=== PATIENT | female | born 1980 ===

== ENCOUNTER 2017-02-11 09:33 | Emergency (ER) | payer SELFPAY ==
[2017-02-11 11:38] VITALS: BMI 33.4
--- NOTE | 2017-02-11 15:48 | US ---
PROCEDURE: OB Pelvic Ultrasound HISTORY: MD order COMPARISON: None available. FINDINGS: UTERUS: Gestational sac: Single intrauterine gestation. Placenta seen at the anterior wall. The fetus is seen at cephalic presentation at the time of this exam. The amniotic fluid index is 19.9 centimeter. back is to were the anterior wall. CERVIX: The uterine cervix is not clearly visualized in this exam. RIGHT OVARY: Was not visualized. LEFT OVARY: Was not visualized. FREE FLUID: None. OTHER FINDINGS: The biophysical profile is 8 of 8. None. IMPRESSION: Single intrauterine live seen at cephalic presentation. Placenta seen at the anterior wall. Amniotic fluid index is 19.9 centimeter. Biophysical profile is 8 of 8.
--- NOTE | 2017-02-11 16:49 | OBHP ---
Datetime: 02/11/2017 16:28 IP Adm Impression: Term, intrauterine ; No Active Labor; Intact Membranes IP Admit Plan: Observation/Evaluation; Discharge home Admit Comment, IP Provider: 36-year-old 0-0 at 38 weeks gestational age presents to OB ED comp laining of dark brown vaginal discharge, patient concerned about vaginal bleeding. Patient denies any vaginal bleeding, leakage of fluids, contractions. Patient reports good movement. rec ords reviewed. Otherwise, patient without complaints. Past medical history none Past surgical history none Medications vitamins No known drug allergies Obstetrical history first trimester spontaneous loss of 2 Social history no tobacco, no drugs, no alcohol Physical exam: Refer to physical exam findings Biophysical profile: 8 out of 8 Assessment: 36-year-old at 30 weeks gestational age. No evidence of labor at this time. Both maternal well-being and well-being reassuring at this time. BPP 8 out of 8 Plan: Discharge home. Follow-up with care as early scheduled. All patient questions answered. P atient given labor precautions. Pelvic Type - PN: Adequate Extremities - PN: Normal Abdomen - PN: Normal Back - PN: Normal Breast - PN: Normal Lungs - PN: Normal Heart - PN: Normal Thyroid - PN: Normal Neurologic - PN: Normal HEENT - PN: Normal General - PN: Normal FHR - Baseline A Provider: 120s-130s Membranes, Provider: Intact Contraction Comments Provider: occasional irregular pattern Comments, ACOG Physical Exam: Cervix 1 cm, long, high and posterior Small amount of dark brown old blood on exam Pool Provider: Negative IP Hx Assessment: The History has been Reviewed and is Current Vital Signs Provider: Reviewed; Within Normal Limits IP Chief Complaint: Vaginal bleeding NICHD Variability Prov Fetus A: Moderate 6-25bpm NICHD Accel Fetus A IP Provider: 15X15 FHR Category Provider Fetus A: Category I NICHD Decel Fetus A IP Provider: None Dilatation, Provider: 1 Effacement, Provider: long Station, Provider: high Genitourinary Exam: Normal DTRs - PN: Normal
== END 2017-02-11 16:48 | disposition home or self-care (01) ==
LOC: H.EROB2 09:33
DX: O47.1 False labor at or after 37 completed weeks of gestation (principal); Z3A.38 38 weeks gestation of pregnancy

== ENCOUNTER 2017-02-13 14:14 | Emergency (ER) | payer SELFPAY ==
[2017-02-13 15:04] VITALS: BMI 38.7
--- NOTE | 2017-02-13 16:49 | OBHP ---
Datetime: 02/13/2017 15:06 IP Adm Impression: Term, intrauterine IP Admit Plan: Observation/Evaluation; Discharge home (Annotations: Data stored by CPN on behalf of user) Admit Comment, IP Provider: 36 y/o , at 39+3wks presents with suspected ROM and ctx since 11:00. Notes some brown discharge, +FM. Drinking plenty of water, 5-6 bottles today. PNC: [facility] GBS: negative, HIV neg, HBsAg: neg, RPR: NR, Rubella not immune PPD+, CXR neg POBhx: 2 SAB PMH: denies PSurgical: denies Exam: refer to physical exam findings A: IUP 39+3 no evidence of labor at this time. Reassuring FHT. P: BPP: 8/8, ANETA: 14.1 Discharge home Patient to follow up at [facility]. Next appt: Wednesday: 02/16/17 Jennyfer Vargas PGY1 Patient seen and examined with Dr. Snyder Abdomen - PN: Normal Lungs - PN: Normal Heart - PN: Normal HEENT - PN: Normal General - PN: Normal FHR - Baseline A Provider: 140 Membranes, Provider: Intact Comments, ACOG Physical Exam: speculum exam: scant brown discharge, no pooling limited bedside u/s done with Dr. Snyder: cephalic presentation. Aneta MVP 3cm, BPP 8/8 Pool Provider: Negative Nitrazine Provider: Negative IP Hx Assessment: The History has been Reviewed and is Current EGA AdmitDate IP: 39.3 Vital Signs Provider: Reviewed IP Chief Complaint: Suspected ruptured membranes NICHD Variability Prov Fetus A: Moderate 6-25bpm NICHD Accel Fetus A IP Provider: 15X15 FHR Category Provider Fetus A: Category I NICHD Decel Fetus A IP Provider: None Dilatation, Provider: 1 Effacement, Provider: thick Station, Provider: high
--- NOTE | 2017-02-13 17:50 | US ---
EXAM: US After First Trimester, Transabdominal CLINICAL HISTORY: 36 years old, female; Pain; Pain indication: Pelvic pain/back pain; ; Additional info: ? Lof TECHNIQUE: Real-time transabdominal obstetrical ultrasound of the maternal pelvis and a second or third trimester with image documentation. EXAM DATE/TIME: 02/13/2017 3:04 PM COMPARISON: No relevant prior studies available. FINDINGS: Single fetus identified, cephalic position. Sonographic gestational age was not calculated. The given gestational age is reportedly 40 weeks, 4 days. heart motion visualized, at 134 beats/min. anatomy was not evaluated. Placenta was not specifically evaluated. ANETA is 14.2 cm, which is between the 5th and 95th percentile for the given gestational age. Cervical length is 5 cm (normal greater than 3 cm), measured transabdominally. Biophysical profile score of 8/8, with 2 points given for tone, 2 points given for movement, 2 points given for breathing, and 2 points given for amniotic fluid. IMPRESSION: Intrauterine with heart motion. No acute abnormality identified on this limited exam. Biophysical profile score of 8/8. Normal ANETA. See above for remaining findings.
== END 2017-02-13 16:45 | disposition home or self-care (01) ==
LOC: H.EROB2 14:14
DX: O47.1 False labor at or after 37 completed weeks of gestation (principal); Z3A.39 39 weeks gestation of pregnancy

== ENCOUNTER 2017-02-14 21:19 | Inpatient (IN) | payer MEDICAID, SELFPAY ==
[2017-02-13 15:04] VITALS: BMI 38.7
[2017-02-14] MEDS: Lactated Ringer's 1,000 ML IV SCH ×2 (22:15→23:30)
[2017-02-14 23:01] LABS: BASO % 0.2 % (0.0-2.0); EOS % 0.3 % (0.0-4.0); HEMATOCRIT 37.5 % (34.0-47.0); LYMPH # 1.6 K/uL (1.0-4.3); LYMPH % 11.4 % (20.0-40.0); MEAN CELL VOLUME 93.9 fl (81.0-99.0); MEAN CORPUSCULAR HEMOGLOBIN 31.4 pg (27.0-31.0); MEAN CORPUSCULAR HGB CONC 33.4 g/dL (33.0-37.0); MEAN PLATELET VOLUME 10.2 fl (7.2-11.7); NEUT # 11.7 K/uL (1.8-7.0); NEUT % 81.1 % (50.0-75.0); RED CELL DISTRIBUTION WIDTH 14.8 % (11.5-14.5); WHITE BLOOD COUNT 14.4 K/uL (4.8-10.8)
--- NOTE | 2017-02-14 23:01 | OBHP ---
Datetime: 02/14/2017 22:20 IP Adm Impression: Term, intrauterine IP Admit Plan: Observation/Evaluation Admit Comment, IP Provider: 36 yo at 39+4 wks w/ EDC 02/17/2017 by LMP, c/o ctxns and lower abdominal pain, started this am, not sure if her water broke around 9:20 am, denies VB, reports FM. 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 FHT reassuring. GBS negative. Extremities - PN: Normal Neurologic - PN: Normal FHR - Baseline A Provider: 150 Membranes, Provider: Intact Contraction Comments Provider: Q6-7 Comments, ACOG Physical Exam: Spec: scant fluid, negative nitrazine, negative fern VE: 1/ 100/ w/ a palpable bag Pool Provider: Negative Nitrazine Provider: Negative Ferning Provider: Negative EGA AdmitDate IP: 39.4 Vital Signs Provider: Reviewed IP Chief Complaint: Uterine contractions NICHD Variability Prov Fetus A: Moderate 6-25bpm NICHD Decel Fetus A IP Provider: None Dilatation, Provider: 1 Effacement, Provider: 100 Station, Provider: -3 Genitourinary Exam: Normal
[2017-02-15] MEDS: Lactated Ringer's 1,000 ML IV SCH ×13 (00:17→16:00)
--- NOTE | 2017-02-15 05:17 | OBPN ---
Datetime: 02/15/2017 05:13 IP Progress Plan Other: BPP IP Procedures: Sterile Speculum Exam Membranes, Provider: Intact FHR - Baseline A Provider: 140 IP Progress Note Comment: 36 yo at 39+5 wks w/ ctxns, VE unchanged NST nonreactive BPP today NICHD Variability Prov Fetus A: Moderate 6-25bpm Dilatation, Provider: 1 Effacement, Provider: 100 Station, Provider: -3 Datetime: 02/14/2017 22:20 Pool Provider: Negative Nitrazine Provider: Negative Ferning Provider: Negative Contraction Comments Provider: Q6-7 Vital Signs Provider: Reviewed NICHD Decel Fetus A IP Provider: None Datetime: 02/13/2017 15:06 NICHD Accel Fetus A IP Provider: 15X15 FHR Category Provider Fetus A: Category I
[2017-02-15 10:13] VITALS: RESP 18
--- NOTE | 2017-02-15 10:15 | US ---
Ultrasound biophysical profile Indication: fht non reactive Technique: Grayscale, color flow, and M-mode sonographic images of the single live intrauterine were obtained. Comparison: the AO physical profile performed 02/13/17 Findings: There is a single live intrauterine gestation. The fetus is in cephalic position. The placenta is not adequately assessed on the submitted views. There is a normal amount of amniotic fluid. The ANETA measures 16.2 cm. M-mode imaging demonstrates a heart rate to be 142.2 beats per min. movements 2/2 breathing 2/2 tone 2/2 Amniotic fluid 2/2 Total score impression: 06/01 Impression: Biophysical profile of 8 out of 8. Single live intrauterine in cephalic position with a heart rate of 142.2 beats per min.
[2017-02-15] MEDS ORDERED: Oxytocin 30 units/LR 500ML 500 ML IV ONE (11:31)
[2017-02-15] MEDS ORDERED: Lactated Ringer's 2,000 ML IV SCH (14:00)
--- NOTE | 2017-02-15 14:17 | OBADHP ---
Datetime: 02/15/2017 11:34 Pelvic Type - PN: Adequate Abdomen - PN: Normal Lungs - PN: Normal Heart - PN: Normal HEENT - PN: Normal General - PN: Normal Vital Signs Provider: Reviewed EGA AdmitDate IP: 39.5 Datetime: 02/15/2017 09:25 Admit Comment, IP Provider: at 39+5 wks GA presents with complaints of pain with contractions a nd minimal LOF with contractions. Patient notes decreased FM since yesterday. GBS: negative, HIV neg, HBsAg: neg, RPR: NR, Rubella not immune PPD+, CXR neg POBhx: 2 SAB PMH: denies PSurgical: denies A: IUP at 39+5 wks GA in latent phase of labor P: Admit to unit -labs: rpr, cbc, type and screen, urine drug screen, ua -BPP Reassess Irais PGY1 OBH ADDENDUM: pt seen _ examined by me. agree with a above assessment with following additions: Extremities - PN: Normal Back - PN: Normal Neurologic - PN: Normal Membranes, Provider: Intact Contraction Comments Provider: irreg IP Hx Assessment: The History has been Reviewed and is Current IP Chief Complaint: Uterine contractions; Decreased movement Dilatation, Provider: 2 Effacement, Provider: 90 Station, Provider: -2 Genitourinary Exam: Normal IP Adm Impression: Term, intrauterine IP Admit Plan: Admit to unit; Initiate labor induction protocol Datetime: 02/15/2017 07:46 FHR - Baseline A Provider: 140s Vital Signs Provider Details: bradycardia NICHD Variability Prov Fetus A: Minimal - Undetectable to <5bpm NICHD Decel Fetus A IP Provider: None Datetime: 02/14/2017 22:20 Comments, ACOG Physical Exam: Spec: scant fluid, negative nitrazine, negative fern VE: 1/ 100/ w/ a palpable bag Pool Provider: Negative Nitrazine Provider: Negative Ferning Provider: Negative Datetime: 02/13/2017 15:06 NICHD Accel Fetus A IP Provider: 15X15 FHR Category Provider Fetus A: Category I Datetime: 02/11/2017 16:28 Breast - PN: Normal Thyroid - PN: Normal DTRs - PN: Normal
[2017-02-15] MEDS ORDERED: Fentanyl/Bupivacaine HCl 250 ML EPI ONE (15:01)
[2017-02-15 15:27] LABS: RBC URINE 1 /hpf (0-3); URINE BILIRUBIN NEGATIVE (NEGATIVE); URINE BLOOD NEGATIVE (NEGATIVE); URINE COLOR YELLOW (YELLOW); URINE GLUCOSE (UA) NEG (Normal); URINE KETONE NEGATIVE (NEGATIVE); URINE LEUKOCYTE ESTERASE NEG Leu/uL (Negative); URINE PROTEIN NEGATIVE (NEGATIVE); URINE UROBILINOGEN 0.2-1.0 mg/dL (0.2-1.0); WBC URINE < 1 /hpf (0-5)
[2017-02-15 17:20] LABS: ALB/GLOB RATIO 0.8 (1.0-2.1); ALKALINE PHOSPHATASE 196 U/L (38-126); ALT/SGPT 33 U/L (9-52); AST/SGOT 26 U/L (14-36); BILIRUBIN,TOTAL 0.3 mg/dl (0.2-1.3); BLOOD UREA NITROGEN 10 mg/dl (7-17); CALCIUM 8.4 mg/dL (8.4-10.2); CARBON DIOXIDE 20 mmol/L (22-30); CHLORIDE 111 mmol/L (98-107); GFR AFRICAN-AMERICAN > 60; GLUCOSE,RANDOM 105 mg/dL (65-105); POTASSIUM 3.6 MMOL/L (3.6-5.0); SODIUM 143 mmol/l (132-148); TOTAL PROTEIN 5.9 G/DL (6.3-8.2)
[2017-02-15] MEDS ORDERED: Lactated Ringer's 2,000 ML IV ONE (18:30)
[2017-02-15] MEDS ORDERED: ceFAZolin 2 GM in Sodium Chloride 0.9% 100 ML IVPB ONE (18:42)
--- NOTE | 2017-02-15 18:57 | OBPN ---
Datetime: 02/15/2017 18:54 IP Informed Consent Obtain: Section Delivery Presentation-Admit: Vertex IP Progress Note Comment: s: no c/o o: /-2 arom moder mecon fhr: intermittent variable decel, variab min- moder ctx 1 1-5min; Pit @ 4mu I: Intolerance to Labor Latent Phase Labor P: informed consent obtained for . risk, benefits, indic d/w. she agrees with plan. NICHD Decel Fetus A IP Provider: Variable Datetime: 02/15/2017 11:34 IP Progress Impression: Reassuring heart rate IP Procedures: Biophysical Profile IP Progress Plan: Augmentation Datetime: 02/15/2017 09:25 Membranes, Provider: Intact Contraction Comments Provider: irreg FHR - Baseline A Provider: 150 Vital Signs Provider: Reviewed NICHD Variability Prov Fetus A: min-moder Dilatation, Provider: 2 Effacement, Provider: 90 Station, Provider: -2 Datetime: 02/15/2017 07:46 Vital Signs Provider Details: bradycardia
[2017-02-15] MEDS ORDERED: Lidocaine 2% PF (10 ml) Amp ONE ×3 (19:42→21:11)
[2017-02-15] MEDS ORDERED: DiphenhydrAMINE 50 mg/ml Inj IVP PRN (20:10)
[2017-02-15] MEDS ORDERED: Midazolam 2 MG/2 ML VIAL ONE (20:44)
[2017-02-15] MEDS ORDERED: Dexamethasone 4 mg/1 ml ONE (20:45)
[2017-02-15] MEDS ORDERED: Propofol 10 mg/ml Inj (20 ML) ONE (21:12)
[2017-02-15 21:54] VITALS: BP 134/65; PULSE 51; TEMP 98.7; O2SAT 99
[2017-02-15] MEDS ORDERED: Oxycodone/Acetaminophen 5/325 mg Tab PO PRN (22:42)
[2017-02-15] MEDS ORDERED: Oxytocin 30 units/LR 500ML 500 ML IV SCH (22:45)
[2017-02-16] MEDS ORDERED: Lactated Ringer's 1,000 ML IV SCH (00:45)
[2017-02-16] MEDS ORDERED: ceFAZolin 2 GM in Sodium Chloride 0.9% 100 ML IVPB ONE ×2 (00:54→08:00)
[2017-02-16 07:02] LABS: BASO % 0.1 % (0.0-2.0); HEMATOCRIT 28.7 % (34.0-47.0); LYMPH # 1.4 K/uL (1.0-4.3); LYMPH % 7.5 % (20.0-40.0); MEAN CELL VOLUME 93.9 fl (81.0-99.0); MEAN CORPUSCULAR HEMOGLOBIN 31.8 pg (27.0-31.0); MEAN CORPUSCULAR HGB CONC 33.8 g/dL (33.0-37.0); MEAN PLATELET VOLUME 9.7 fl (7.2-11.7); MONO # 0.9 K/uL (0.0-0.8); MONO % 5.1 % (0.0-10.0); NEUT # 16.2 K/uL (1.8-7.0); NEUT % 87.3 % (50.0-75.0); NRBC % 0.1 % (0.0-0.0); PLATELET COUNT 173 K/uL (130-400); RED CELL DISTRIBUTION WIDTH 14.9 % (11.5-14.5); WHITE BLOOD COUNT 18.6 K/uL (4.8-10.8)
[2017-02-16 07:44] LABS: ALB/GLOB RATIO 0.8 (1.0-2.1); ALKALINE PHOSPHATASE 134 U/L (38-126); ALT/SGPT 30 U/L (9-52); AST/SGOT 30 U/L (14-36); BILIRUBIN,TOTAL 0.2 mg/dl (0.2-1.3); BLOOD UREA NITROGEN 11 mg/dl (7-17); CARBON DIOXIDE 20 mmol/L (22-30); CHLORIDE 113 mmol/L (98-107); GFR AFRICAN-AMERICAN > 60; GLUCOSE,RANDOM 97 mg/dL (65-105); POTASSIUM 3.6 MMOL/L (3.6-5.0); SODIUM 143 mmol/l (132-148); TOTAL PROTEIN 4.8 G/DL (6.3-8.2)
--- NOTE | 2017-02-16 08:10 | OP ---
PROCEDURE DATE: 02/15/2017 PREOPERATIVE DIAGNOSES: 1. 39.5 weeks. 2. intolerance to contractions. 3. Failed augmentation of labor POSTOPERATIVE DIAGNOSES: 1. 39.5 weeks. 2. intolerance to contractions. 3. Failed augmentation of labor PROCEDURE: Primary low transverse section. SURGEON: Brandon Dolan MD FISHER TERRAPIN: Dr. Candida Vargas, PGY-1; and Dr. Desiree Hardy, PGY-1. ANESTHESIA: Epidural. ANESTHESIOLOGIST: Dr. Thomas. ESTIMATED BLOOD LOSS: 900 mL. COMPLICATIONS: None. FINDINGS: thick meconium; viable female infant in direct OP presentation with a weight of 7 pounds 10 ounces, equal to 3450 grams, and Apgars of 9 and 9. The patient to recovery room. to nursery. PATHOLOGY: None. CATHETER: Ibarra placed to drainage. INDICATIONS: The patient is a 36-year-old female, 3, para 0, who presented to L and D with complaints of decreased movement since the day prior to presentation and complaints of contractions and concern for questionable rupture. Within past week she had presented to kho[facility] 2 other times with complaint of light vaginal bleeding. She was observed overnight. Her monitor strip was noted to have minimal to moderate variability and was nonreactive. Biophysical was ordered and her biophysical was 8/8. The patient continued to have a monitor strip with minimal to moderate variability and nonreactivity. She appeared to be in the early phase of latent labor and was admitted for augmentation. The indications of augmentation were discussed with patient and she desired and agreed with plan of care. Following augmentation with Pitocin, the patient developed recurrent intermittent variable decelerations with continued minimal variability to moderate variability. intolerance to contractions was discussed with the patient and informed consent was obtained for a section. Risks, benefits also discussed with the patient. OPERATIVE PROCEDURE: The patient was taken to the operating room where she was placed in the dorsal supine position with a leftward tilt. The bladder catheter was placed. She was then prepped and draped in the routine sterile fashion. A Pfannenstiel skin incision was made with the knife and the incision was carried down to the underlying rectus fascia and extended bilaterally. The inferior rectus fascial edge was grasped with Leana's and elevated, and the underlying rectus muscle dissected off. The same procedure was performed along the superior rectus fascial edge. The peritoneum was identified, tented upward and incised superiorly and inferiorly. The bladder blade was placed and the bladder flap created using sharp dissection. A lower uterine transverse incision was made with the scalpel and the uterine cavity was entered with a hemostat. Thick meconium was observed. The uterine incision was extended laterally and in an anterior-posterior matter. The was noted to be in direct OP presentation. The was delivered in routine fashion. The mouth and nares suctioned. The cord clamped and cut. The baby was handed off to the awaiting uniform patrol police officer. Cord segment was obtained for cord pH. Cord blood was collected. The placenta was delivered spontaneously intact. The uterus was exteriorized and cleared of all clots and debris. A left lateral extension was noted extending inferiorly and this was repaired with 0 Monocryl in a running locked fashion. The uterine incision was repaired with 0 Monocryl in a running locked fashion. There was also a right inferior lateral extension noted and this was repaired with 0 Monocryl in a running locked fashion. An imbricated stitch with 0 Monocryl was then placed. The abdomen was irrigated and cleared of all clots and debris. The uterus was returned to the abdomen and the pelvis was irrigated and cleared of all clots and debris. Dr. Booker was called to assist in closure however when she arrived the uterine incisions had been closed. She briefly scrubbed in. Excellent hemostasis was confirmed. All sponge, lap and needle counts were correct. The peritoneum was reapproximated with 2-0 Vicryl in a running fashion. The muscle was reapproximated with 2-0 Vicryl in simple interrupted fashion. The fascia was reapproximated with 0 Vicryl in a running fashion beginning at left lateral corner and going directly across to the right. The wound was irrigated and excellent hemostasis confirmed. The subcutaneous tissue was closed with 2-0 plain in simple interrupted fashion and the skin was closed with a subcuticular stitch of 4-[address] Vargas and Antony assisted in the surgical closure of the subcutaneous and subcuticular layers. All sponge, lap and needle counts were correct x 2. The patient returned to recovery room in satisfactory condition. Brandon Dolan MD cc: [id number] TT: 02/16/2017 08:09:37 mn EDUARDO
[2017-02-16 13:13] LABS: LARGE PLATELETS PRESENT; NEUTROPHIL 92 % (42-75); TOTAL CELLS COUNTED 100
--- NOTE | 2017-02-17 06:28 | OBPPN ---
Datetime: 02/17/2017 06:23 PP Pain Prov: Within normal limits PP Nausea Prov: Denies PP Flatus Prov: Yes PP BM Prov: No PP Heart Prov: Normal PP Lungs Prov: Normal PP Abdomen/Uterus Prov: Normal PP Lochia Prov: Normal PP CVA Tenderness Prov: Normal PP Extremities Prov: Normal PP C/S Incision Prov: Normal PP Progress Prov: Normal PP Comments Phys Exam Prov: incision clean/dry/intact PP Impression Prov: Normal progression PP Plan Prov: Continue present management PP Progress Note Prov: POD # 2 Patient sitting comfortably in bed, feeling well this AM. Denies pain, dizziness/weakness/nausea o r vomiting. Has flatus, no bowel movement yet. Patient has normal urine output. Tolerating PO diet, h as no difficulty ambulating. Patient is breast and bottle feeding. No concerns or complaints at this time. PE: VSS Lungs: CTABL Cardiac: S1 S2 rrr, no murmurs/rubs/gallops Abd: bowel sound present, soft, tenderness to palpation, fundus firm below level of umbilicus, incision: clean/dry/intact Ext: trace pedal edema bilaterally A: 36 yr s/p primary P: -Continue present management -encouraged ambulation -pain management -encouraged breast feeding Desiree Schmidt M.D. -PGY1 OB Hospitalist note: late entry h/h 07/22 This pt was seen 22:00 and examined by me. Agree with above note. ANGELA NORTH PP Procedures: None Vital Signs Provider PP: Reviewed; Within Normal Limits
--- NOTE | 2017-02-17 11:09 | OBPPN ---
Datetime: 02/17/2017 06:23 PP Progress Note Prov: POD # 2 Patient sitting comfortably in bed, feeling well this AM. Denies pain, dizziness/weakness/nausea o r vomiting. Has flatus, no bowel movement yet. Patient has normal urine output. Tolerating PO diet, h as no difficulty ambulating. Patient is breast and bottle feeding. No concerns or complaints at this time. PE: VSS Lungs: CTABL Cardiac: S1 S2 rrr, no murmurs/rubs/gallops Abd: bowel sound present, soft, tenderness to palpation, fundus firm below level of umbilicus, incision: clean/dry/intact Ext: trace pedal edema bilaterally A: 36 yr s/p primary P: -Continue present management -encouraged ambulation -pain management -encouraged breast feeding Desiree Schmidt M.D. -PGY1 OB Hospitalist note: late entry h/h 07/22 The patient was seen with the resident and agree with the note. Postoperative day #2 Encourage ambulation Motrin and Percocet as needed Anticipate discharge in a.m.
[2017-02-18] MEDS ORDERED: Measles, Mumps, and Rubella 1 EA VIAL SC ONE (10:00)
--- NOTE | 2017-02-23 12:49 | OBDS ---
DELIVERY PERSONNEL Delivery Doctor: Tin Iqbal MD [employer] Curer: lala Fitzgerald RN/ Glenis Gomez RN/ Chava RN Anesthesiologist: Lexy Campos MD (Annotations: Data stored by [facility] on behalf of user) Resident: Dr. Tammie Vargas / Dr. Stephanie Schmidt MATERNAL INFORMATION Delivery Anesthesia: Epidural Medications in Delivery: Pitocin (Annotations: Data stored by [facility] on behalf of user) Estimated Blood Loss (ml): 900 Placenta Cultured: No Maternal Complications: None Provider Comments: op note preop dx: 39.5wks; intolerance to contracts postop dx: same; direct op procedure: primary lft cs surgeon: ita assts: jose pgy1, tiffany pgy1 anesth: epidural dr palafox ebl 900cc no complic ebl 900cc findings: viable female,direct op; 7lb10o; 9_9 pt to rr neon to nbn. path: none. LABOR SUMMARY EDC: 02/17/2017 00:00 No. Babies in Womb: 1 Attempted: No Labor Anesthesia: Epidural LABOR INFORMATION Reason for Induction: Not Applicable Onset of Labor: 02/15/2017 15:00 Oxytocin: Augmentation Group B Beta Strep: Negative Steroids Given: None Reason Steroids Not Administered: Not Applicable Other Reason Not Administered: n/a MEMBRANES Membranes Rupture Method: Artificial Rupture of Membranes: 02/15/2017 18:10 Length of Rupture (hrs): 2.25 Amniotic Fluid Color: moderate meconium Amniotic Fluid Amount: Moderate Amniotic Fluid Odor: Normal STAGES OF LABOR Stage 3 hrs: 0 Stage 3 min: 1 Total Time in Labor hrs: 5 Total Time in Labor min: 26 CSECTION DELIVERY Primary Indication: Other Other Primary Indication: intolerance to labor Secondary Indication: N/A CSection Urgency: Non Elective CSection Incidence: Primary Labor: Labor Elective: Nonelective CSection Incision: Lower Uterine Transverse CSection Incision Other: n/a Other Sterilization Procedure: n/a BABY A INFORMATION Delivery Date/Time: 02/15/2017 20:25 Method of Delivery: Born in Route : No : N/A Forceps: N/A Vacuum Extraction: N/A Shoulder Dystocia : No SHOULDER DYSTOCIA BABY A Infant Delivery Date/Time: 02/15/2017 20:25 PRESENTATION/POSITION BABY A Presentation: Cephalic Cephalic Presentation: N/A Vertex Position: direct op Breech Presentation: N/A PLACENTA INFORMATION BABY A Placenta Delivery Time : 02/15/2017 20:26 Placenta Method of Delivery: Spontaneous Placenta Status: Delivered SCORES BABY A Heart Rate 1 min: >100 bpm Resp Effort 1 min: Good Cry Reflex Irritability 1 min: Cough or Sneeze or Pulls Away Muscle Tone 1 min: Active Motion Color 1 min: Body [place], Extremities Blue Resuscitation Effort 1 min: Tactile Stimulation SCORE 1 MIN: 9 Heart Rate 5 min: >100 bpm Resp Effort 5 min: Good Cry Reflex Irritability 5 min: Cough or Sneeze or Pulls Away Muscle Tone 5 min: Active Motion Color 5 min: Body [place], Extremities Blue Resuscitation Effort 5 min: N/A SCORE 5 MIN: 9 INFORMATION BABY A Gestational Age at Delivery: 39.5 Gestational Status: Term Infant Outcome : Liveborn Condition : Stable Infant Sex: Female IDENTIFICATION/MEDS BABY A ID Band Number: [id number] ID Band Location: Left Leg; Left Arm Vitamin K Given : Not Given Erythromycin Given: Not Given WEIGHT/LENGTH BABY A Birthweight (gms): 3450 Infant Weight (lb): 7 Weight (oz): 10 CORD INFORMATION BABY A No. Cord Vessels: 3 Nuchal Cord : N/A Nuchal Cord Other: n/a True Knot: n/a Cord pH Baby Arterial: 7.31 Cord Blood Taken: Yes Banking/Donate Info: n/a Infant Suction: Mouth; Nose ASSESSMENT BABY A Complications: None Physical Findings at Delivery: Within Normal Limits Respirations: Appears Normal Engraver Picture/ALS Called : No Infant Care By: Dr. Oreilly /Ceasar Pro Transferred To: [facility]
== END 2017-02-18 17:45 | disposition home or self-care (01) | DRG 371 ==
LOC: H.EROB2 21:19 → H.L&D 02-15 03:30 → OBSVTOIN 02-15 08:59 → H.OB/GYN 02-16 01:10
PROVIDERS: ADMIT Obstetrics & Gynecology; ATTEND Obstetrics & Gynecology
PROC: 10D00Z1 Extraction of Products of Conception, Low, Open Approach (ICD-10-PCS; principal; 2017-02-15)
PROC: 4A1HXCZ Monitoring of Products of Conception, Cardiac Rate, External Approach (ICD-10-PCS; 2017-02-15)
DX: O36.8130 Decreased fetal movements, third trimester, not applicable or unspecified (principal); O76 Abnormality in fetal heart rate and rhythm complicating labor and delivery; Z37.0 Single live birth; Z3A.39 39 weeks gestation of pregnancy

== ENCOUNTER 2019-03-03 17:32 | Inpatient (IN) | payer MEDICAID, OTHER ==
[2019-03-03 17:32] VITALS: BMI 38.7
--- NOTE | 2019-03-03 17:50 | ED PDOC ---
HPI: Abdomen Time Seen by Provider: 03/03/19 18:07 Chief Complaint (Nursing): Abdominal Pain Chief Complaint (Provider): RUQ abdominal pain History Per: Patient History/Exam Limitations: no limitations Onset/Duration Of Symptoms: Days (1 day) Outside of [place] travel?: No Current Symptoms Are (Timing): Still Present Severity: Severe Pain Scale Rating Of: 10 Location Of Pain/Discomfort: RUQ Quality Of Discomfort: Pressure Associated Symptoms: Fever (subjective), Chills, Nausea, Vomiting (3 episodes. NBNB). denies: Diarrhea Exacerbating Factors: Movement Alleviating Factors: None Last Bowel Movement: Yesterday Additional Complaint(s): 38 yo female with no pertinent medical history presents to the ED because of RUQ pain. RUQ pain began yesterday. Pain is constant, 10/10, radiates to her back, and is associated with 3 episodes of NBNB vomiting, subjective fevers, chills and dypsnea secondary to the intense pain. Describes the pain as pressure like. No alleviating or aggravating factors. Last meal was 2p.m. earlier today (soup and grapes). Denies chest pain, sick contacts, dysuria, frequency or urgency. LMP: 02/19/19 PMD: none Social: Denies alcohol use, illicit drug use or smoking history Family history: non-contributory Surgical history: 1 C/S Medical history: Denies Abnormal Vaginal Bleeding: No Last Menstral Period: 02/19/19 Past Medical History Reviewed: Historical Data, Nursing Documentation, Vital Signs Vital Signs: Last Vital Signs Temp 98.0 F 03/03/19 17:44 Pulse 52 L 03/03/19 17:44 Resp 20 03/03/19 17:44 BP 103/63 03/03/19 17:44 Pulse Ox 100 03/03/19 17:44 Primary Care Provider: Doctor,Conversion - Medical History PMH: No Chronic Diseases - Surgical History Surgical History: (x1) - Family History Family History: States: No Known Family Hx Denies: Stroke, [place], CAD, Hypertension - Social History Current smoker - smoking cessation education provided: No Ex-Smoker (has not smoked in the last 12 months): No Alcohol: None Drugs: Denies - Home Medications Home Medications: Ambulatory Orders Medication Instructions Recorded Ferrous Sulfate [Feosol] 325 mg PO BID #60 tab 02/18/17 Ibuprofen [Motrin Tab] 600 mg PO Q6 PRN #30 tab 02/18/17 Comb No.42/Folic Acid 1 tab PO DAILY #0 02/18/17 [Prena1 Chew Tablet] Sennosides A and B [Senokot Tab] 17.2 mg PO HS #30 tab 02/18/17 oxyCODONE/Acetaminophen [Percocet 1 tab PO Q4 PRN #20 tab 02/18/17 5/325 mg Tab] - Allergies Allergies/Adverse Reactions: Allergies Allergy/AdvReac Type Severity Reaction Status Date / Time No Known Allergies Allergy Verified 03/03/19 17:44 Review of Systems Constitutional: Positive for: Fever (subjective), Chills, Sweats Cardiovascular: Negative for: Chest Pain, Palpitations Respiratory: Positive for: Shortness of Breath (secondary to the pain). Negative for: Cough Gastrointestinal: Positive for: Nausea, Vomiting (3 episodes NBNB), Abdominal Pain (RUQ). Negative for: Diarrhea Genitourinary Female: Negative for: Dysuria, Frequency, Hematuria, Vaginal Bleeding Neurological: Negative for: Weakness Physical Exam - Physical Exam Appears: Positive for: Uncomfortable, In Acute Distress Skin: Positive for: Warm, Diaphoresis, Pallor. Negative for: Jaundice Eye Exam: Positive for: Normal appearance, PERRL. Negative for: Scleral icterus Cardiovascular/Chest: Positive for: Regular Rate, Rhythm (S1 and S2 appreciated on exam), Bradycardia. Negative for: Murmur Respiratory: Positive for: Normal Breath Sounds. Negative for: Decreased Breath Sounds, Accessory Muscle Use, Crackles, Rales, Rhonchi, Stridor, Wheezing, Respiratory Distress Gastrointestinal/Abdominal: Positive for: Bowel Sounds (hypoactive bowel soun ds), Soft, Tenderness (RUQ tenderness), Rebound (Simpson's sign positive ). Negative for: Distended, Guarding Back: Positive for: Normal Inspection. Negative for: L CVA Tenderness, R CVA Tenderness, Vertebral Tenderness Neurological/Psych: Positive for: Awake, Alert - Laboratory Results Result Diagrams: 03/08/19 05:25 03/08/19 05:25 - ECG O2 Sat by Pulse Oximetry: 100 - Progress ED Course And Treament: 38 yo female with no pertinent medical history presents to the ED because of RUQ pain Differential: Acute Cholecystitis vs. gastroenteritis vs. pancreatitis Plan: -- CBC -- CMP -- Lipase -- RUQ u/s -- 1L Bolus of NS -- Morphine 2mg x1 for pain -- Zofran x1 for nausea -- Lipase -- Urine dip -- Urine preg Disposition - Clinical Impression Clinical Impression: Cholecystitis - Patient ED Disposition Is Patient to be Admitted: Yes Doctor Will See Patient In The: Hospital - Disposition Disposition Time: 20:48 Condition: FAIR
[2019-03-03] MEDS ORDERED: Sodium Chloride 0.9% 1,000 ML IV SCH (18:15)
--- NOTE | 2019-03-03 18:58 | US ---
Date of service: 03/03/2019 HISTORY: RUQ pain COMPARISON: None. TECHNIQUE: Sonographic evaluation of the right upper quadrant of the abdomen. FINDINGS: LIVER: Measures 15.2 cm in length. Patent portal and hepatic venous systems. Portal venous flow: Hepatopetal. echogenicity of the liver parenchyma. No mass. No intrahepatic bile duct dilatation. GALLBLADDER: Distended gallbladder. Cholelithiasis. Negative study for gallbladder wall thickening, pericholecystic fluid, sonographic Simpson's sign. COMMON BILE DUCT: Measures 11.4 mm. Dilated common bile duct to the point of a small stone in the distal duct measures approximately 9 x 10 mm. PANCREAS: Unremarkable as visualized. No mass. No ductal dilatation. RIGHT KIDNEY: Measures cm in length. Normal echogenicity. No calculus, mass, or hydronephrosis. AORTA: No aneurysmal dilatation. IVC: Unremarkable. OTHER FINDINGS: None . IMPRESSION: Cholelithiasis. No sonographic evidence of acute cholecystitis. 1 cm distal common duct stone with proximal common bile duct dilatation.
[2019-03-03 19:07] LABS: BASO % 0.3 % (0.0-2.0); EOS % 0.1 % (0.0-4.0); HEMOGLOBIN 12.3 g/dL (12.0-16.0); LYMPH # 0.9 K/uL (1.0-4.3); LYMPH % 7.1 % (20.0-40.0); MEAN CELL VOLUME 92.3 fl (81.0-99.0); MEAN CORPUSCULAR HEMOGLOBIN 30.4 pg (27.0-31.0); MEAN CORPUSCULAR HGB CONC 32.9 g/dL (33.0-37.0); MEAN PLATELET VOLUME 9.2 fl (7.2-11.7); MONO # 0.4 K/uL (0.0-0.8); MONO % 3.1 % (0.0-10.0); NEUT # 10.9 K/uL (1.8-7.0); NEUT % 89.4 % (50.0-75.0); PLATELET COUNT 239 K/uL (130-400); RBC 4.05 Mil/uL (3.80-5.20); RED CELL DISTRIBUTION WIDTH 13.6 % (11.5-14.5); WHITE BLOOD COUNT 12.2 K/uL (4.8-10.8)
[2019-03-03 19:25] LABS: ALB/GLOB RATIO 1.3 (1.0-2.1); ALBUMIN 4.4 g/dL (3.5-5.0); ALT/SGPT 141 U/L (9-52); AMYLASE 118 U/L (30-110); AST/SGOT 134 U/L (14-36); BLOOD UREA NITROGEN 12 mg/dl (7-17); CALCIUM 8.6 mg/dL (8.4-10.2); GFR NON-AFRICAN AMERICAN > 60; LIPASE 291 U/L (23-300)
--- NOTE | 2019-03-03 20:48 | CP.PCM.HP ---
<Shane Arevalo - Last Filed: 03/03/19 22:14> History of Present Illness - History of Present Illness History of Present Illness: 38 yo F no sig pmhx presents with RUQ pain. Pt states pain has been present for 8 days. Intermittent, slowly progressing to 10/10, sharp, localized. No particular aggravating factors. Mildly alleviated with motrin. Associated with nausea and NBNB vomiting x3 today. Denies hx of similar symptoms, fever, chills, trauma to abdomen, falls. Last po intake hours prior. Last bowel movement this morning. Denies diarrhea, constipation. Denies dysuria/hematuria/increased f requency. PMD: none Soc: denies: smoking alcohol illicit drugs; lives with family surg: section 2yrs ago. famhx: none Rx: motrin prn NKDA Present on Admission - Present on Admission Any Indicators Present on Admission: No History of Uncontrolled Diabetes: No Review of Systems - Cardiovascular Cardiovascular: absent: Chest Pain, Chest Pain at Rest - Respiratory Respiratory: absent: Cough, Dyspnea - Gastrointestinal Gastrointestinal: As Per HPI - Genitourinary Genitourinary: As Per HPI Past Patient History - Infectious Disease Hx of Infectious Diseases: None - Past Social History Smoking Status: Never Smoked Alcohol: None Drugs: Denies Home Situation {Lives}: With Family - PSYCHIATRIC Hx Substance Use: No - SURGICAL HISTORY Hx Surgeries: Yes Hx Section: Yes - ANESTHESIA Hx Anesthesia: No Meds Allergies/Adverse Reactions: Allergies Allergy/AdvReac Type Severity Reaction Status Date / Time No Known Allergies Allergy Verified 03/03/19 17:44 Physical Exam - Constitutional Appears: No Acute Distress - Eye Exam Eye Exam: EOMI - ENT Exam ENT Exam: Mucous Membranes Moist - Respiratory Exam Respiratory Exam: Clear to Auscultation Bilateral, NORMAL BREATHING PATTERN. absent: Wheezes - Cardiovascular Exam Cardiovascular Exam: REGULAR RHYTHM, +S1, +S2 - GI/Abdominal Exam GI & Abdominal Exam: Normal Bowel Sounds, Soft. absent: Tenderness - Extremities Exam Extremities exam: Negative for: calf tenderness - Back Exam Back exam: absent: CVA tenderness (L), CVA tenderness (R) - Neurological Exam Neurological exam: Alert, CN II-XII Intact, Oriented x3 - Psychiatric Exam Psychiatric exam: Normal Affect, Normal Mood Results - Vital Signs Recent Vital Signs: Last Vital Signs Temp 98.8 F 03/03/19 20:23 Pulse 63 03/03/19 20:23 Resp 18 03/03/19 20:23 BP 118/64 03/03/19 20:23 Pulse Ox 100 03/03/19 20:23 - Labs Result Diagrams: 03/03/19 19:03 03/03/19 19:03 Labs: Laboratory Results - last 24 hr 03/03/19 03/03/19 19:03 19:03 WBC 12.2 H RBC 4.05 Hgb 12.3 D Hct 37.3 MCV 92.3 MCH 30.4 MCHC 32.9 L RDW 13.6 Plt Count 239 MPV 9.2 Neut % (Auto) 89.4 H Lymph % (Auto) 7.1 L [place] % (Auto) 3.1 Eos % (Auto) 0.1 Baso % (Auto) 0.3 Neut # (Auto) 10.9 H Lymph # (Auto) 0.9 L [place] # (Auto) 0.4 Eos # (Auto) 0.0 Baso # (Auto) 0.0 Sodium 136 Potassium 4.0 Chloride 100 Carbon Dioxide 26 Anion Gap 14 BUN 12 Creatinine 0.4 L Est GFR ( Amer) > 60 Est GFR (Non-Af Amer) > 60 Random Glucose 156 H Calcium 8.6 Total Bilirubin 1.0 AST 134 H ALT 141 H D Alkaline Phosphatase 193 H Total Protein 8.0 Albumin 4.4 Globulin 3.5 Albumin/Globulin Ratio 1.3 Amylase 118 H Lipase 291 Assessment & Plan - Assessment and Plan (Free Text) Assessment: 38 yo F no sig pmhx presents with RUQ pain. Admitted for cholelithiasis and dilated common bile duct. Plan: US ABDO: Cholelithiasis. No sonographic evidence of acute cholecystitis. 1 cm distal common duct stone with proximal common bile duct dilatation. Cholelithiasis with dilation of CBD Surgery consult: Dr. Romero; further recs appreciated GI consulted: Dr. Pagan; further recs appreciated NPO MRCP pain management UPREG neg start IVABX: zosyn f/u am labs, MRCP Transaminitis likely 2/2 cholelithiasis continue to trend labs DVT prophylaxis SCDs for now; probable surgery Case and plan d/w Dr. Larry Arevalo MD PGY2 <Estevan Juarez - Last Filed: 03/04/19 02:58> Results - Vital Signs Recent Vital Signs: Last Vital Signs Temp 97.9 F 03/04/19 00:16 Pulse 61 03/04/19 00:16 Resp 19 03/04/19 00:16 BP 100/57 L 03/04/19 00:16 Pulse Ox 99 03/04/19 00:16 - Labs Result Diagrams: 03/03/19 19:03 03/03/19 19:03 Labs: Laboratory Results - last 24 hr 03/03/19 03/03/19 19:03 19:03 WBC 12.2 H RBC 4.05 Hgb 12.3 D Hct 37.3 MCV 92.3 MCH 30.4 MCHC 32.9 L RDW 13.6 Plt Count 239 MPV 9.2 Neut % (Auto) 89.4 H Lymph % (Auto) 7.1 L [place] % (Auto) 3.1 Eos % (Auto) 0.1 Baso % (Auto) 0.3 Neut # (Auto) 10.9 H Lymph # (Auto) 0.9 L [place] # (Auto) 0.4 Eos # (Auto) 0.0 Baso # (Auto) 0.0 Neutrophils % (Manual) 84 H Band Neutrophils % 3 H Lymphocytes % (Manual) 9 L Monocytes % (Manual) 4 Platelet Estimate Normal Hypochromasia (manual) Slight Anisocytosis (manual) Slight Tear Drop Cells Slight Sodium 136 Potassium 4.0 Chloride 100 Carbon Dioxide 26 Anion Gap 14 BUN 12 Creatinine 0.4 L Est GFR ( Amer) > 60 Est GFR (Non-Af Amer) > 60 Random Glucose 156 H Calcium 8.6 Total Bilirubin 1.0 AST 134 H ALT 141 H D Alkaline Phosphatase 193 H Total Protein 8.0 Albumin 4.4 Globulin 3.5 Albumin/Globulin Ratio 1.3 Amylase 118 H Lipase 291 Attending/Attestation - Attestation I have personally seen and examined this patient.: Yes I have fully participated in the care of the patient.: Yes I have reviewed all pertinent clinical information: Yes Notes (Text): 03/04/19 02:46 I saw, examined and discussed this patient with Dr Arevalo. I agree with the assessment and plan outlined above. This is a 38 years old female with no significant past medical hx. She comes with right upper Quadrant abdominal pain for one week becoming worse over the last 2 days, associated with chills and vomits. The Ultrasound showed Cholelithiasis, Choledocolithiasis, Dilated common bile duct and small stone in distal common bile duct 9x10. This is a Biliary Colic and we will treat for Cholangitis. Consult surgery and Gastroenterology. Follow MRCP , Pain management, antiemetics and stress ulcer prophylaxis. Estevan Juarez MD
[2019-03-03 21:33] LABS: BANDS 3 % (0-2); LYMPHOCYTE 9 % (20-50); MONOCYTE 4 % (0-10); NEUTROPHIL 84 % (42-75); PLATELET ESTIMATE NORMAL (NORMAL); TOTAL CELLS COUNTED 100
[2019-03-03 21:34] LABS: ANISOCYTOSIS SLIGHT; HYPOCHROMIC SLIGHT; TEARDROP CELLS SLIGHT
--- NOTE | 2019-03-03 22:28 | CP.PCM.CON ---
History of Present Illness - History of Present Illness History of Present Illness: General surgery consult note for Dr. Karolina Arevalo, PGY-2 Pt seen/examined at bedside 38F w/no sig PMH consulted for RUQ ab pain x 8 days. Pain is moderate-severe, intermittent, radiates to back, and acutely worsened over the past 2 days. Patient reports emesis x 3 (nb, nb), nausea on day of evaluation. No aggravating factors identified. Alleviated by morphine. Reports that she eats oil on her salads. Never had before. Denies F & C, SOB, CP, changes in bowel or bladder habits, other complaints. In ED, Leukocytosis of 12.2 with left shift. T bili 1.0, elevated LFTs. Ab U/S with findings of CBD 1 cm, proximal CBD dilatation with gallstones, no pericholecystic fluid or GB wall thickening. PMH: Denies PSH: x 1 All: NKDA SH: Denies ETOH, tobacco, or illicit drug use FH: No gallbladder disease, no cancer hx PMD:None Review of Systems - Review of Systems All systems: reviewed and no additional remarkable complaints except - Constitutional Constitutional: absent: Chills, Fever - EENT Nose/Mouth/Throat: absent: Sore Throat - Cardiovascular Cardiovascular: absent: Chest Pain - Gastrointestinal Gastrointestinal: Abdominal Pain, Nausea, Vomiting. absent: Constipation, Diar glenn, Hematemesis, Hematochezia, Melena - Genitourinary Genitourinary: absent: Difficulty Urinating, Dysuria, Hematuria - Musculoskeletal Musculoskeletal: Back Pain - Integumentary Integumentary: absent: Rash - Neurological Neurological: absent: Weakness - Psychiatric Psychiatric: absent: Change in Appetite Past Patient History - Infectious Disease Hx of Infectious Diseases: None - Past Social History Smoking Status: Never Smoked Alcohol: None Drugs: Denies Home Situation {Lives}: With Family - PSYCHIATRIC Hx Substance Use: No - SURGICAL HISTORY Hx Surgeries: Yes Hx Section: Yes - ANESTHESIA Hx Anesthesia: No Meds Allergies/Adverse Reactions: Allergies Allergy/AdvReac Type Severity Reaction Status Date / Time No Known Allergies Allergy Verified 03/03/19 17:44 - Medications Medications: Current Medications Sodium Chloride (Sodium Chloride 0.9%) 1,000 mls @ 999 mls/hr IV .Q1H1M [facility] Stop: 03/04/19 18:04 Last Admin: 03/03/19 19:06 Dose: 999 mls/hr Piperacillin Sod/Tazobactam (Sod 3.375 gm/ Sodium Chloride) 100 mls @ 100 mls/hr IVPB Q6 [facility]; Protocol Lactated Ringer's (Lactated Ringer's) 1,000 mls @ 125 mls/hr IV .Q8H [facility] Multivit/Folic Acid/Iron () 1 tab PO DAILY [facility] Physical Exam - Constitutional Appears: Non-toxic, No Acute Distress - Head Exam Head Exam: ATRAUMATIC, NORMAL INSPECTION, NORMOCEPHALIC - Eye Exam Eye Exam: EOMI, Normal appearance - ENT Exam ENT Exam: Mucous Membranes Moist, Normal Exam - Neck Exam Neck exam: Positive for: Full Rom, Normal Inspection - Respiratory Exam Respiratory Exam: Clear to Auscultation Bilateral, NORMAL BREATHING PATTERN. absent: Decreased Breath Sounds, Rales, Rhonchi, Wheezes, Respiratory Distress - Cardiovascular Exam Cardiovascular Exam: REGULAR RHYTHM, +S1, +S2 - GI/Abdominal Exam GI & Abdominal Exam: Normal Bowel Sounds, Soft, Tenderness (RUQ). absent: Distended, Guarding, Rebound, Rigid - Extremities Exam Extremities exam: Positive for: normal inspection - Neurological Exam Neurological exam: Alert, CN II-XII Intact, Oriented x3 - Psychiatric Exam Psychiatric exam: Normal Affect, Normal Mood - Skin Skin Exam: Dry, Intact, Normal Color, Warm Results - Vital Signs Recent Vital Signs: Last Vital Signs Temp 98.8 F 03/03/19 20:23 Pulse 63 03/03/19 20:23 Resp 18 03/03/19 20:23 BP 118/64 03/03/19 20:23 Pulse Ox 100 03/03/19 20:23 - Labs Result Diagrams: 03/03/19 19:03 03/03/19 19:03 Labs: Laboratory Results - last 24 hr 03/03/19 03/03/19 19:03 19:03 WBC 12.2 H RBC 4.05 Hgb 12.3 D Hct 37.3 MCV 92.3 MCH 30.4 MCHC 32.9 L RDW 13.6 Plt Count 239 MPV 9.2 Neut % (Auto) 89.4 H Lymph % (Auto) 7.1 L [place] % (Auto) 3.1 Eos % (Auto) 0.1 Baso % (Auto) 0.3 Neut # (Auto) 10.9 H Lymph # (Auto) 0.9 L [place] # (Auto) 0.4 Eos # (Auto) 0.0 Baso # (Auto) 0.0 Neutrophils % (Manual) 84 H Band Neutrophils % 3 H Lymphocytes % (Manual) 9 L Monocytes % (Manual) 4 Platelet Estimate Normal Hypochromasia (manual) Slight Anisocytosis (manual) Slight Tear Drop Cells Slight Sodium 136 Potassium 4.0 Chloride 100 Carbon Dioxide 26 Anion Gap 14 BUN 12 Creatinine 0.4 L Est GFR ( Amer) > 60 Est GFR (Non-Af Amer) > 60 Random Glucose 156 H Calcium 8.6 Total Bilirubin 1.0 AST 134 H ALT 141 H D Alkaline Phosphatase 193 H Total Protein 8.0 Albumin 4.4 Globulin 3.5 Albumin/Globulin Ratio 1.3 Amylase 118 H Lipase 291 Assessment & Plan - Assessment and Plan (Free Text) Assessment: 38F w/biliary colic Plan: Admit to medical service Recommend GI consult Recommend MRCP Pain control IVF CLD for now Avoid morphine for pain control DW Dr. Grayson Arevalo, PGY-2 - Date & Time Date: 03/03/19 Time: 22:28
[2019-03-03] MEDS ORDERED: HYDROmorphone 0.5 mg/0.5 ml ISec IVP PRN (22:31)
[2019-03-03] MEDS: Lactated Ringer's 1,000 ML IV SCH (22:49)
[2019-03-03] MEDS: Piperacillin/Tazobact 3.375 GM in Sodium Chloride 0.9% 100 ML IVPB SCH (22:55)
[2019-03-04] MEDS: Piperacillin/Tazobact 3.375 GM in Sodium Chloride 0.9% 100 ML IVPB SCH ×4 (04:37→21:01)
[2019-03-04 07:17] LABS: HEMOGLOBIN 11.3 g/dL (12.0-16.0); MEAN CELL VOLUME 93.5 fl (81.0-99.0); MEAN CORPUSCULAR HEMOGLOBIN 31.1 pg (27.0-31.0); MEAN CORPUSCULAR HGB CONC 33.2 g/dL (33.0-37.0); RBC 3.65 Mil/uL (3.80-5.20); RED CELL DISTRIBUTION WIDTH 14.1 % (11.5-14.5); WHITE BLOOD COUNT 7.5 K/uL (4.8-10.8)
[2019-03-04 07:34] LABS: ALB/GLOB RATIO 1.2 (1.0-2.1); ALBUMIN 3.7 g/dL (3.5-5.0); ALT/SGPT 337 U/L (9-52); AST/SGOT 278 U/L (14-36); BLOOD UREA NITROGEN 9 mg/dl (7-17); CALCIUM 7.8 mg/dL (8.4-10.2); GFR NON-AFRICAN AMERICAN > 60
[2019-03-04] MEDS: Prenatal Multivit/Folic Acid/Iron Tab PO SCH ×2 (08:41→08:43)
[2019-03-04] MEDS: Lactated Ringer's 1,000 ML IV SCH ×4 (08:42→22:15)
[2019-03-04] MEDS ORDERED: Gadodiamide 287 MG/ML VIAL (15ML) IV ONE (09:01)
--- NOTE | 2019-03-04 10:42 | CP.PCM.PN ---
Subjective - Date & Time of Evaluation Date of Evaluation: 03/04/19 Time of Evaluation: 10:39 - Subjective Subjective: Surgery Progress Note for Dr. Galicia 38F seen and evaluated at bedside this morning. No acute events overnight. No complaints this morning. States abdominal pain has mildly improved however still pain with palpation. NPO diet. Denies f/c, n/v/d, SOB, CP, or urinary symptoms. Objective - Vital Signs/Intake and Output Vital Signs (last 24 hours): Temp Pulse Resp BP Pulse Ox 98.5 F 95 H 20 98/54 L 97 03/04/19 08:26 03/04/19 08:26 03/04/19 08:26 03/04/19 08:26 03/04/19 08:26 - Medications Medications: Current Medications Famotidine (Pepcid) 20 mg IVP DAILY [facility] Last Admin: 03/04/19 08:41 Dose: 20 mg Hydromorphone HCl (Dilaudid) 0.5 mg IVP Q3H PRN PRN Reason: Pain, severe (8-10) Sodium Chloride (Sodium Chloride 0.9%) 1,000 mls @ 999 mls/hr IV .Q1H1M [facility] Stop: 03/04/19 18:04 Last Admin: 03/03/19 19:06 Dose: 999 mls/hr Piperacillin Sod/Tazobactam (Sod 3.375 gm/ Sodium Chloride) 100 mls @ 100 mls/hr IVPB Q6 [facility]; Protocol Last Admin: 03/04/19 09:30 Dose: 100 mls/hr Lactated Ringer's (Lactated Ringer's) 1,000 mls @ 125 mls/hr IV .Q8H [facility] Last Admin: 03/04/19 08:42 Dose: 125 mls/hr Ondansetron HCl (Zofran Inj) 4 mg IVP Q4 PRN PRN Reason: Nausea/Vomiting Multivit/Folic Acid/Iron () 1 tab PO DAILY [facility] Last Admin: 03/04/19 08:43 Dose: Not Given - Labs Labs: 03/04/19 05:25 03/04/19 05:25 - Constitutional Appears: Well, Non-toxic, No Acute Distress - Head Exam Head Exam: ATRAUMATIC, NORMAL INSPECTION, NORMOCEPHALIC - Eye Exam Eye Exam: EOMI - ENT Exam ENT Exam: Mucous Membranes Moist - Respiratory Exam Respiratory Exam: NORMAL BREATHING PATTERN. absent: Wheezes, Respiratory Distress - Cardiovascular Exam Cardiovascular Exam: REGULAR RHYTHM, +S1, +S2. absent: Murmur - GI/Abdominal Exam GI & Abdominal Exam: Soft, Tenderness, Normal Bowel Sounds. absent: Distended - Neurological Exam Neurological Exam: Alert, Awake, Oriented x3 - Psychiatric Exam Psychiatric exam: Normal Affect, Normal Mood - Skin Skin Exam: Dry, Intact, Normal Color, Warm Assessment and Plan - Assessment and Plan (Free Text) Assessment: 38F w/ cholelithiasis, suspected choledocholithiasis Plan: Pending MRCP NPO IVF Antiemetics and analgesics PRN IV Abx F/u GI recommendations Further recommendations per Dr. Grayson Villarreal PGY1
--- NOTE | 2019-03-04 11:05 | CP.PCM.PN ---
<Mo Graham - Last Filed: 03/04/19 11:13> Subjective - Date & Time of Evaluation Date of Evaluation: 03/04/19 Time of Evaluation: 09:05 - Subjective Subjective: Patient seen and examined thia AM. Patient still c/o RUQ though noted some improvement from yesterday, denies N/V at now. afebrile. Objective - Vital Signs/Intake and Output Vital Signs (last 24 hours): Temp Pulse Resp BP Pulse Ox 98.5 F 95 H 20 98/54 L 97 03/04/19 08:26 03/04/19 08:26 03/04/19 08:26 03/04/19 08:26 03/04/19 08:26 - Medications Medications: Current Medications Famotidine (Pepcid) 20 mg IVP DAILY [facility] Last Admin: 03/04/19 08:41 Dose: 20 mg Hydromorphone HCl (Dilaudid) 0.5 mg IVP Q3H PRN PRN Reason: Pain, severe (8-10) Sodium Chloride (Sodium Chloride 0.9%) 1,000 mls @ 999 mls/hr IV .Q1H1M [facility] Stop: 03/04/19 18:04 Last Admin: 03/03/19 19:06 Dose: 999 mls/hr Piperacillin Sod/Tazobactam (Sod 3.375 gm/ Sodium Chloride) 100 mls @ 100 mls/hr IVPB Q6 [facility]; Protocol Last Admin: 03/04/19 09:30 Dose: 100 mls/hr Lactated Ringer's (Lactated Ringer's) 1,000 mls @ 125 mls/hr IV .Q8H [facility] Last Admin: 03/04/19 08:42 Dose: 125 mls/hr Ondansetron HCl (Zofran Inj) 4 mg IVP Q4 PRN PRN Reason: Nausea/Vomiting Multivit/Folic Acid/Iron () 1 tab PO DAILY [facility] Last Admin: 03/04/19 08:43 Dose: Not Given - Labs Labs: 03/04/19 05:25 03/04/19 05:25 - Constitutional Appears: No Acute Distress - Head Exam Head Exam: NORMAL INSPECTION - Eye Exam Eye Exam: EOMI - ENT Exam ENT Exam: Mucous Membranes Moist - Neck Exam Neck Exam: Full ROM - Respiratory Exam Respiratory Exam: NORMAL BREATHING PATTERN - Cardiovascular Exam Cardiovascular Exam: REGULAR RHYTHM - GI/Abdominal Exam GI & Abdominal Exam: Soft, Tenderness (RUQ tenderness), Normal Bowel Sounds - Neurological Exam Neurological Exam: Alert, Awake, Oriented x3 - Skin Skin Exam: Normal Color, Warm Assessment and Plan - Assessment and Plan (Free Text) Assessment: 38 yo F no sig pmhx presents with RUQ pain. Admitted for cholelithiasis and dilated common bile duct. Plan: US ABDO: Cholelithiasis. No sonographic evidence of acute cholecystitis. 1 cm distal common duct stone with proximal common bile duct dilatation. Cholelithiasis with dilation of CBD Surgery consult: Dr. Romero; further recs appreciated GI consulted: Dr. Pagan; further recs appreciated NPO MRCP pending results pain management UPREG neg start IVABX: zosyn f/u am labs, MRCP Transaminitis likely 2/2 cholelithiasis continue to trend labs DVT prophylaxis SCDs for now; probable surgery <Galen Ribeiro - Last Filed: 03/04/19 15:13> Objective - Vital Signs/Intake and Output Vital Signs (last 24 hours): Temp Pulse Resp BP Pulse Ox 98.5 F 95 H 20 98/54 L 97 03/04/19 08:26 03/04/19 08:26 03/04/19 08:26 03/04/19 08:26 03/04/19 08:26 - Medications Medications: Current Medications Famotidine (Pepcid) 20 mg IVP DAILY [facility] Last Admin: 03/04/19 08:41 Dose: 20 mg Hydromorphone HCl (Dilaudid) 0.5 mg IVP Q3H PRN PRN Reason: Pain, severe (8-10) Sodium Chloride (Sodium Chloride 0.9%) 1,000 mls @ 999 mls/hr IV .Q1H1M [facility] Stop: 03/04/19 18:04 Last Admin: 03/03/19 19:06 Dose: 999 mls/hr Piperacillin Sod/Tazobactam (Sod 3.375 gm/ Sodium Chloride) 100 mls @ 100 mls/hr IVPB Q6 [facility]; Protocol Last Admin: 03/04/19 09:30 Dose: 100 mls/hr Lactated Ringer's (Lactated Ringer's) 1,000 mls @ 125 mls/hr IV .Q8H [facility] Last Admin: 03/04/19 08:42 Dose: 125 mls/hr Ondansetron HCl (Zofran Inj) 4 mg IVP Q4 PRN PRN Reason: Nausea/Vomiting Multivit/Folic Acid/Iron () 1 tab PO DAILY [facility] Last Admin: 03/04/19 08:43 Dose: Not Given - Labs Labs: 03/04/19 05:25 03/04/19 05:25 Attending/Attestation - Attestation I have personally seen and examined this patient.: Yes I have fully participated in the care of the patient.: Yes I have reviewed all pertinent clinical information, including history, physical exam and plan: Yes Notes (Text): 03/04/19 15:12 Patient seen and examined with resident. Case discussed and agreed with assessm ent and plan.
--- NOTE | 2019-03-04 23:59 | CP.PCM.CON ---
History of Present Illness - History of Present Illness History of Present Illness: 38 yo female admitted with RUQ pain for 10 days On day of admission was also having nausea and vomiting. Denies diarrhea. Review of Systems - Constitutional Constitutional: absent: Chills - EENT Eyes: absent: Blurred Vision Ears: absent: Decreased Hearing Nose/Mouth/Throat: absent: Epistaxis - Cardiovascular Cardiovascular: absent: Chest Pain - Respiratory Respiratory: absent: Dyspnea - Gastrointestinal Gastrointestinal: As Per HPI - Genitourinary Genitourinary: absent: Change in Urinary Stream Past Patient History - Infectious Disease Hx of Infectious Diseases: None - Past Medical History & Family History Past Medical History?: No - Past Social History Smoking Status: Never Smoked Alcohol: None Drugs: Denies Home Situation {Lives}: With Family - CARDIAC Hx Cardiac Disorders: No - PULMONARY Hx Respiratory Disorders: No - NEUROLOGICAL Hx Neurological Disorder: No - HEENT Hx HEENT Problems: No - RENAL Hx Chronic Kidney Disease: No - ENDOCRINE/METABOLIC Hx Endocrine Disorders: No - HEMATOLOGICAL/ONCOLOGICAL Hx Blood Disorders: No Hx AIDS: No Hx Human Immunodeficiency Virus (HIV): No - INTEGUMENTARY Hx Dermatological Problems: No - MUSCULOSKELETAL/RHEUMATOLOGICAL Hx Musculoskeletal Disorders: No Hx Falls: No - GASTROINTESTINAL Hx Gastrointestinal Disorders: No - GENITOURINARY/GYNECOLOGICAL Hx Genitourinary Disorders: No - PSYCHIATRIC Hx Substance Use: No - SURGICAL HISTORY Hx Surgeries: Yes Hx Section: Yes - ANESTHESIA Hx Anesthesia: No Meds Allergies/Adverse Reactions: Allergies Allergy/AdvReac Type Severity Reaction Status Date / Time No Known Allergies Allergy Verified 03/03/19 17:44 - Medications Medications: Current Medications Famotidine (Pepcid) 20 mg IVP DAILY [facility] Last Admin: 03/04/19 08:41 Dose: 20 mg Hydromorphone HCl (Dilaudid) 0.5 mg IVP Q3H PRN PRN Reason: Pain, severe (8-10) Lactated Ringer's (Lactated Ringer's) 1,000 mls @ 125 mls/hr IV .Q8H [facility] Last Admin: 03/04/19 22:15 Dose: Not Given Piperacillin Sod/Tazobactam (Sod 3.375 gm/ Sodium Chloride) 100 mls @ 100 mls/hr IVPB Q6H [facility]; Protocol Ondansetron HCl (Zofran Inj) 4 mg IVP Q4 PRN PRN Reason: Nausea/Vomiting Multivit/Folic Acid/Iron () 1 tab PO DAILY [facility] Last Admin: 03/04/19 08:43 Dose: Not Given Physical Exam - Constitutional Appears: No Acute Distress - Head Exam Head Exam: ATRAUMATIC - Eye Exam Eye Exam: Normal appearance - ENT Exam ENT Exam: Normal Exam - Neck Exam Neck exam: Positive for: Full Rom - Respiratory Exam Respiratory Exam: Clear to Auscultation Bilateral - Cardiovascular Exam Cardiovascular Exam: REGULAR RHYTHM, +S1, +S2 - GI/Abdominal Exam GI & Abdominal Exam: Normal Bowel Sounds, Soft, Tenderness Additional comments: epigastric tenderness Results - Vital Signs Recent Vital Signs: Last Vital Signs Temp 98.2 F 03/04/19 16:21 Pulse 62 03/04/19 16:21 Resp 18 03/04/19 16:21 BP 100/65 03/04/19 16:21 Pulse Ox 100 03/04/19 16:21 - Labs Result Diagrams: 03/04/19 05:25 03/04/19 05:25 Labs: Laboratory Results - last 24 hr 03/04/19 03/04/19 05:25 05:25 WBC 7.5 RBC 3.65 L Hgb 11.3 L Hct 34.1 MCV 93.5 MCH 31.1 H MCHC 33.2 RDW 14.1 Plt Count 219 Sodium 137 Potassium 3.9 Chloride 105 Carbon Dioxide 24 Anion Gap 12 BUN 9 Creatinine 0.5 L Est GFR ( Amer) > 60 Est GFR (Non-Af Amer) > 60 Random Glucose 90 Calcium 7.8 L Total Bilirubin 1.8 H AST 278 H D ALT 337 H D Alkaline Phosphatase 173 H Total Protein 7.0 Albumin 3.7 Globulin 3.2 Albumin/Globulin Ratio 1.2 - Imaging and Cardiology MRI - abdomen Status: Image reviewed by me, Report reviewed by me US - abdomen Status: Image reviewed by me, Report reviewed by me Assessment & Plan (1) Choledocholithiasis Assessment and Plan: 38 yo female with diilated CBD, evidence oc 1 cm CBD stone, elevated LFTs and abdominal pain. Continue IV abx. For ERCP on Wednesday Status: Acute
[2019-03-05] MEDS: Piperacillin/Tazobact 3.375 GM in Sodium Chloride 0.9% 100 ML IVPB SCH ×4 (03:09→21:09)
[2019-03-05] MEDS: Lactated Ringer's 1,000 ML IV SCH ×4 (06:07→22:15)
--- NOTE | 2019-03-05 06:26 | CP.PCM.PN ---
Subjective - Date & Time of Evaluation Date of Evaluation: 03/05/19 Time of Evaluation: 06:25 - Subjective Subjective: Surgery Progress Note for Dr. Galicia 38F seen and evaluated at bedside this morning. No acute events overnight. No complaints this morning. Patient abd pain has improved. She tolerated her diet. Patient voiding, having BM. Denies f/c, n/v/d, SOB, CP, or urinary symptoms. Objective - Vital Signs/Intake and Output Vital Signs (last 24 hours): Temp Pulse Resp BP Pulse Ox 97.7 F 61 18 95/57 L 98 03/05/19 00:49 03/05/19 00:49 03/05/19 00:49 03/05/19 00:49 03/05/19 00:49 - Medications Medications: Current Medications Famotidine (Pepcid) 20 mg IVP DAILY [facility] Last Admin: 03/04/19 08:41 Dose: 20 mg Hydromorphone HCl (Dilaudid) 0.5 mg IVP Q3H PRN PRN Reason: Pain, severe (8-10) Lactated Ringer's (Lactated Ringer's) 1,000 mls @ 125 mls/hr IV .Q8H [facility] Last Admin: 03/05/19 06:08 Dose: 125 mls/hr Piperacillin Sod/Tazobactam (Sod 3.375 gm/ Sodium Chloride) 100 mls @ 100 mls/hr IVPB Q6H [facility]; Protocol Last Admin: 03/05/19 03:09 Dose: 100 mls/hr Ondansetron HCl (Zofran Inj) 4 mg IVP Q4 PRN PRN Reason: Nausea/Vomiting Multivit/Folic Acid/Iron () 1 tab PO DAILY [facility] Last Admin: 03/04/19 08:43 Dose: Not Given - Labs Labs: 03/04/19 05:25 03/04/19 05:25 - Constitutional Appears: Well, Non-toxic, No Acute Distress - Head Exam Head Exam: ATRAUMATIC, NORMAL INSPECTION, NORMOCEPHALIC - Eye Exam Eye Exam: EOMI - ENT Exam ENT Exam: Mucous Membranes Moist - Respiratory Exam Respiratory Exam: NORMAL BREATHING PATTERN. absent: Wheezes, Respiratory Distress - Cardiovascular Exam Cardiovascular Exam: REGULAR RHYTHM, +S1, +S2. absent: Murmur - GI/Abdominal Exam GI & Abdominal Exam: Soft, Normal Bowel Sounds. absent: Distended, Guarding, Tenderness, Rebound - Neurological Exam Neurological Exam: Alert, Awake, Oriented x3 - Psychiatric Exam Psychiatric exam: Normal Affect, Normal Mood - Skin Skin Exam: Dry, Intact, Normal Color, Warm Assessment and Plan - Assessment and Plan (Free Text) Assessment: 38F w/ cholelithiasis, suspected choledocholithiasis Plan: Per GI - ERCP Wednesday NPO past midnight tonight Antiemetics and analgesics for pain Pending ERCP, patient proceed to OR Wednesday for cholecystectomy Further recommendations pending Dr. Galicia evaluation Johnathan Villarreal PGY1
[2019-03-05 06:27] LABS: MEAN CELL VOLUME 92.9 fl (81.0-99.0); MEAN CORPUSCULAR HEMOGLOBIN 31.6 pg (27.0-31.0); RBC 3.48 Mil/uL (3.80-5.20); RED CELL DISTRIBUTION WIDTH 13.7 % (11.5-14.5); WHITE BLOOD COUNT 7.9 K/uL (4.8-10.8)
[2019-03-05 06:38] LABS: ALB/GLOB RATIO 1.2 (1.0-2.1); ALBUMIN 3.6 g/dL (3.5-5.0); ALT/SGPT 241 U/L (9-52); AST/SGOT 100 U/L (14-36); BLOOD UREA NITROGEN 9 mg/dl (7-17); CALCIUM 8.2 mg/dL (8.4-10.2); GFR NON-AFRICAN AMERICAN > 60
[2019-03-05] MEDS: Prenatal Multivit/Folic Acid/Iron Tab PO SCH (09:18)
--- NOTE | 2019-03-05 09:27 | RAD ---
Date of service: 03/05/2019 HISTORY: preop work up COMPARISON: Chest radiographs 11/24/2016. TECHNIQUE: 1 view obtained. FINDINGS: LUNGS: No active pulmonary disease. PLEURA: No significant pleural effusion identified, no pneumothorax apparent. CARDIOVASCULAR: No aortic atherosclerotic calcification present. Normal cardiac size. No pulmonary vascular congestion. OSSEOUS STRUCTURES: No significant abnormalities. VISUALIZED UPPER ABDOMEN: Normal. OTHER FINDINGS: None. IMPRESSION: No interval acute cardiopulmonary disease appreciated.
[2019-03-05 09:30] LABS: INR 1.1; PROTHROMBIN TIME 12.7 Seconds (9.8-13.1)
--- NOTE | 2019-03-05 10:06 | CP.PCM.PN ---
<Linda Gomez - Last Filed: 03/05/19 12:09> Subjective - Date & Time of Evaluation Date of Evaluation: 03/05/19 Time of Evaluation: 10:05 - Subjective Subjective: Pt seen and evaluated bedside, mild RUQ pain, for ERCP tomorrow and probably OR Wednesday. Denies N/V/CP/SOB/fever/headache. Objective - Vital Signs/Intake and Output Vital Signs (last 24 hours): Temp Pulse Resp BP Pulse Ox 98.1 F 51 L 20 100/61 99 03/05/19 07:53 03/05/19 07:53 03/05/19 07:53 03/05/19 07:53 03/05/19 07:53 - Medications Medications: Current Medications Famotidine (Pepcid) 20 mg IVP DAILY [facility] Last Admin: 03/04/19 08:41 Dose: 20 mg Hydromorphone HCl (Dilaudid) 0.5 mg IVP Q3H PRN PRN Reason: Pain, severe (8-10) Lactated Ringer's (Lactated Ringer's) 1,000 mls @ 125 mls/hr IV .Q8H [facility] Last Admin: 03/05/19 06:08 Dose: 125 mls/hr Piperacillin Sod/Tazobactam (Sod 3.375 gm/ Sodium Chloride) 100 mls @ 100 mls/hr IVPB Q6H [facility]; Protocol Last Admin: 03/05/19 09:17 Dose: 100 mls/hr Ondansetron HCl (Zofran Inj) 4 mg IVP Q4 PRN PRN Reason: Nausea/Vomiting Multivit/Folic Acid/Iron () 1 tab PO DAILY [facility] Last Admin: 03/05/19 09:18 Dose: 1 tab - Labs Labs: 03/05/19 05:10 03/05/19 05:10 PT 12.7 Seconds (9.8-13.1) 03/05/19 09:05 INR 1.1 03/05/19 09:05 - Constitutional Appears: Non-toxic, No Acute Distress - Eye Exam Eye Exam: Normal appearance - ENT Exam ENT Exam: Mucous Membranes Moist - Respiratory Exam Respiratory Exam: NORMAL BREATHING PATTERN - Cardiovascular Exam Cardiovascular Exam: REGULAR RHYTHM - GI/Abdominal Exam GI & Abdominal Exam: Soft, Tenderness - Neurological Exam Neurological Exam: Alert, Awake - Psychiatric Exam Psychiatric exam: Normal Affect, Normal Mood - Skin Skin Exam: Normal Color, Warm Assessment and Plan - Assessment and Plan (Free Text) Assessment: 38 yo F no sig pmhx presents with RUQ pain. Admitted for cholelithiasis and dilated common bile duct. Plan: Cholelithiasis with dilation of CBD ERCP tomorrow, 03/06, probable surgery tues 03/07 for leonora NPO after midnight CXR: no active disease f/u EKG, PT/INR Surgery consult: Dr. Romero; further recs appreciated GI consulted: Dr. Pagan; further recs appreciated MRCP: 1cm CBD stone as per GI, ERCP wednesday pain management UPREG neg IVABX: zosyn Transaminitis likely 2/2 cholelithiasis continue to trend labs DVT prophylaxis SCDs for now; probable surgery <Galen Ribeiro - Last Filed: 03/05/19 15:01> Objective - Vital Signs/Intake and Output Vital Signs (last 24 hours): Temp Pulse Resp BP Pulse Ox 98.1 F 62 20 100/61 99 03/05/19 07:53 03/05/19 11:47 03/05/19 07:53 03/05/19 07:53 03/05/19 07:53 - Medications Medications: Current Medications Famotidine (Pepcid) 20 mg IVP DAILY [facility] Last Admin: 03/05/19 10:11 Dose: 20 mg Hydromorphone HCl (Dilaudid) 0.5 mg IVP Q3H PRN PRN Reason: Pain, severe (8-10) Lactated Ringer's (Lactated Ringer's) 1,000 mls @ 125 mls/hr IV .Q8H [facility] Last Admin: 03/05/19 06:08 Dose: 125 mls/hr Piperacillin Sod/Tazobactam (Sod 3.375 gm/ Sodium Chloride) 100 mls @ 100 mls/hr IVPB Q6H [facility]; Protocol Last Admin: 03/05/19 09:17 Dose: 100 mls/hr Ondansetron HCl (Zofran Inj) 4 mg IVP Q4 PRN PRN Reason: Nausea/Vomiting Multivit/Folic Acid/Iron () 1 tab PO DAILY [facility] Last Admin: 05/12/19 09:18 Dose: 1 tab - Labs Labs: 03/05/19 05:10 03/05/19 05:10 PT 12.7 Seconds (9.8-13.1) 03/05/19 09:05 INR 1.1 03/05/19 09:05 Attending/Attestation - Attestation I have personally seen and examined this patient.: Yes I have fully participated in the care of the patient.: Yes I have reviewed all pertinent clinical information, including history, physical exam and plan: Yes Notes (Text): 03/05/19 15:00 Patient seen and examined with resident. Case discussed and agreed with asse ssment and plan
--- NOTE | 2019-03-05 15:50 | MRI ---
Date of service: 03/04/2019 PROCEDURE: Magnetic Resonance Cholangiopancreatography HISTORY: COMPARISON: None available. TECHNIQUE: Multiplanar, multisequence MR images of the abdomen were obtained, including heavily T2 weighted MRCP images of the biliary system. Rotating maximum intensity projection images of the biliary system were generated. FINDINGS: MRCP: Gallbladder is distended with moderate mural thickening up to 2-3 mm diffusely. Mild pericholecystic fluid is seen surrounding the gallbladder extending into space surrounding the proximal duodenum. Extensive cholelithiasis layers in the dependent gallbladder. Central intrahepatic bile ducts are mildly dilated including the common hepatic duct which is dilated up to 9.7 mm with common bile duct dilated variably from 8-10 mm diffusely. Multiple small gallstones identified the distal portion number at least 3-4 or more. LIVER: Normal size liver without focal mass evident. GALLBLADDER: See MRCP section above. SPLEEN: Unremarkable. PANCREAS: Unremarkable. ADRENALS: Unremarkable. KIDNEYS: Unremarkable. AORTA: No aneurysm. ASCITES: None. OTHER FINDINGS: No suspicious contrast enhancement following gadolinium striation throughout the solid abdominal viscera. No significant lymphadenopathy. IMPRESSION: Findings highly suggestive of cholecystitis. Clinically correlate further. Cholelithiasis is identified within the the distended gallbladder with a few gallstones identified the distal dilated common bile duct as discussed above. Central intrahepatic bile ducts are mildly dilated as well. Measurements listed above. Concordant preliminary report from Corrine, 03/04/2019, 8:04 p.m..
--- NOTE | 2019-03-05 18:57 | CARD ---
APPROVED REPORT Date of service: 03/05/2019 EKG Measurement Heart [id number] [place] 136P23 [id number] <Conclusion> Marked sinus bradycardia Abnormal ECG
[2019-03-06] MEDS: Lactated Ringer's 1,000 ML IV SCH ×4 (00:06→23:42)
--- NOTE | 2019-03-06 01:36 | CARD ---
APPROVED REPORT Date of service: 03/05/2019 EKG Measurement Heart [id number] [place] 120P27 [id number] <Conclusion> Marked sinus bradycardia Abnormal ECG
[2019-03-06] MEDS: Piperacillin/Tazobact 3.375 GM in Sodium Chloride 0.9% 100 ML IVPB SCH ×4 (03:42→22:39)
[2019-03-06 06:31] LABS: HEMOGLOBIN 10.9 g/dL (12.0-16.0); MEAN CELL VOLUME 92.2 fl (81.0-99.0); MEAN CORPUSCULAR HEMOGLOBIN 30.9 pg (27.0-31.0); MEAN CORPUSCULAR HGB CONC 33.5 g/dL (33.0-37.0); RBC 3.52 Mil/uL (3.80-5.20); RED CELL DISTRIBUTION WIDTH 13.6 % (11.5-14.5); WHITE BLOOD COUNT 7.8 K/uL (4.8-10.8)
[2019-03-06 06:40] LABS: INR 1.1; PROTHROMBIN TIME 12.9 Seconds (9.8-13.1)
[2019-03-06 06:41] LABS: PARTIAL THROMBOPLASTIN TIME 39.2 Seconds (25.6-37.1)
[2019-03-06 06:45] LABS: ALB/GLOB RATIO 1.2 (1.0-2.1); ALBUMIN 3.7 g/dL (3.5-5.0); ALT/SGPT 208 U/L (9-52); AST/SGOT 76 U/L (14-36); BLOOD UREA NITROGEN 10 mg/dl (7-17); CALCIUM 8.4 mg/dL (8.4-10.2); GFR NON-AFRICAN AMERICAN > 60
--- NOTE | 2019-03-06 07:47 | CP.PCM.PN ---
Subjective - Date & Time of Evaluation Date of Evaluation: 03/06/19 Time of Evaluation: 07:44 - Subjective Subjective: Surgery Progress Note for Dr. Galicia 38F seen and evaluated at bedside this morning. No acute events overnight. AAAOx3 in NAD. Patient abd pain has improved. Patient voiding, having BM. Denies f/c, n/v/d, SOB, CP, or urinary symptoms. Objective - Vital Signs/Intake and Output Vital Signs (last 24 hours): Temp Pulse Resp BP Pulse Ox 98.1 F 59 L 18 111/65 98 03/06/19 00:53 03/06/19 03:05 03/06/19 00:53 03/06/19 03:05 03/06/19 00:53 - Medications Medications: Current Medications Famotidine (Pepcid) 20 mg IVP DAILY [facility] Last Admin: 03/05/19 10:11 Dose: 20 mg Hydromorphone HCl (Dilaudid) 0.5 mg IVP Q3H PRN PRN Reason: Pain, severe (8-10) Lactated Ringer's (Lactated Ringer's) 1,000 mls @ 125 mls/hr IV .Q8H [facility] Last Admin: 03/06/19 06:00 Dose: Not Given Piperacillin Sod/Tazobactam (Sod 3.375 gm/ Sodium Chloride) 100 mls @ 100 mls/hr IVPB Q6H [facility]; Protocol Last Admin: 03/06/19 03:42 Dose: 100 mls/hr Ondansetron HCl (Zofran Inj) 4 mg IVP Q4 PRN PRN Reason: Nausea/Vomiting Multivit/Folic Acid/Iron () 1 tab PO DAILY [facility] Last Admin: 03/05/19 09:18 Dose: 1 tab - Labs Labs: 03/06/19 04:35 03/06/19 04:35 PT 12.9 Seconds (9.8-13.1) 03/06/19 04:35 INR 1.1 03/06/19 04:35 APTT 39.2 Seconds (25.6-37.1) H 03/06/19 04:35 - Constitutional Appears: Well, Non-toxic - Head Exam Head Exam: ATRAUMATIC, NORMOCEPHALIC - Eye Exam Eye Exam: Normal appearance - ENT Exam ENT Exam: Mucous Membranes Moist - Cardiovascular Exam Cardiovascular Exam: REGULAR RHYTHM - GI/Abdominal Exam GI & Abdominal Exam: Soft, Tenderness. absent: Guarding - Neurological Exam Neurological Exam: Alert - Psychiatric Exam Psychiatric exam: Normal Affect - Skin Skin Exam: Normal Color Assessment and Plan - Assessment and Plan (Free Text) Assessment: 38F w/ cholelithiasis, suspected choledocholithiasis Plan: Per GI - ERCP today NPO; Antiemetics and analgesics for pain Pending ERCP, patient to proceed to OR tomorrow for cholecystectomy Further recommendations pending Dr. Galicia evaluation
[2019-03-06] MEDS ORDERED: Iohexol 240 (50 ml) ONE (09:37)
[2019-03-06] MEDS ORDERED: Lactated Ringer's 1,000 ML IV ONE (10:09)
[2019-03-06] MEDS ORDERED: Glucagon Recombinant 1 mg Inj ONE (10:13)
[2019-03-06] MEDS ORDERED: Indomethacin 50 MG Suppository PR ONE ×2 (10:13→11:00)
[2019-03-06] MEDS ORDERED: Succinylcholine 200 mg/10 ml Inj IV ONE (10:49)
[2019-03-06] MEDS: Prenatal Multivit/Folic Acid/Iron Tab PO SCH (13:52)
--- NOTE | 2019-03-06 14:01 | RAD ---
Date of service: 03/06/2019 PROCEDURE: Intraoperative Fluoroscopy. HISTORY: ERCP FINDINGS: Fluoroscopic assistance was provided for ERCP. Total fluoroscopic time (continuous mode) utilized during the procedure 62.9 seconds. Total exam DLP: 359.35 (mGy). . Please refer to the operative report from RUBY Vasquez.
--- NOTE | 2019-03-06 15:20 | CP.PCM.PN ---
<Mo Graham - Last Filed: 03/06/19 15:34> Subjective - Date & Time of Evaluation Date of Evaluation: 03/06/19 Time of Evaluation: 14:55 - Subjective Subjective: Patient seen and examined at bedside this afternoon after she returned from ERCP done today. Patient states feeling well after the procedure, denies abdominal pain, N/V, SOB, CP at this time. On CLD now, tolerating well. ERCP done today, Planning for lap cholecystectomy tomorrow. Patient informed Objective - Vital Signs/Intake and Output Vital Signs (last 24 hours): Temp Pulse Resp BP Pulse Ox 97.5 F L 44 L 18 120/68 95 03/06/19 12:45 03/06/19 12:45 03/06/19 12:45 03/06/19 12:45 03/06/19 12:45 Intake and Output: 03/06/19 03/06/19 06:59 18:59 Intake Total 560 Balance 560 - Medications Medications: Current Medications Hydromorphone HCl (Dilaudid) 0.5 mg IVP Q3H PRN PRN Reason: Pain, severe (8-10) Lactated Ringer's (Lactated Ringer's) 1,000 mls @ 125 mls/hr IV .Q8H [facility] Last Admin: 03/06/19 13:54 Dose: 125 mls/hr Piperacillin Sod/Tazobactam (Sod 3.375 gm/ Sodium Chloride) 100 mls @ 100 mls/hr IVPB Q6H [facility]; Protocol Last Admin: 03/06/19 09:24 Dose: 100 mls/hr Ondansetron HCl (Zofran Inj) 4 mg IVP Q4 PRN PRN Reason: Nausea/Vomiting Pantoprazole Sodium (Protonix Inj) 40 mg IVP DAILY [facility] Last Admin: 03/06/19 13:53 Dose: 40 mg Multivit/Folic Acid/Iron () 1 tab PO DAILY [facility] Last Admin: 03/06/19 13:52 Dose: 1 tab - Labs Labs: 03/06/19 04:35 03/06/19 04:35 PT 12.9 Seconds (9.8-13.1) 03/06/19 04:35 INR 1.1 03/06/19 04:35 APTT 39.2 Seconds (25.6-37.1) H 03/06/19 04:35 - Constitutional Appears: No Acute Distress - Head Exam Head Exam: NORMAL INSPECTION - Eye Exam Eye Exam: EOMI - ENT Exam ENT Exam: Mucous Membranes Moist - Neck Exam Neck Exam: Full ROM - Respiratory Exam Respiratory Exam: Clear to Ausculation Bilateral, NORMAL BREATHING PATTERN - Cardiovascular Exam Cardiovascular Exam: REGULAR RHYTHM - GI/Abdominal Exam GI & Abdominal Exam: Soft. absent: Tenderness - Neurological Exam Neurological Exam: Alert, Awake, Oriented x3 - Psychiatric Exam Psychiatric exam: Normal Affect - Skin Skin Exam: Normal Color, Warm Assessment and Plan - Assessment and Plan (Free Text) Assessment: 38 yo F no sig pmhx presents with RUQ pain. Admitted for cholelithiasis and dilated common bile duct. Plan: Cholelithiasis with dilation of CBD ERCP done today: Removal of calculi/debris from biliary/pancreatic duct. Sphinterotomy/ papillotomy c/w CLD Planning for Lap Cholecystectomy tomorrow Surgery consult: Dr. Romero GI consulted: Dr. Pagan On Admission: CXR: no active disease MRCP done on 03/03 showed: 1cm CBD stone as per GI, ERCP was recommended pain management UPREG neg IVABX: zosyn Transaminitis likely 2/2 cholelithiasis continue to trend labs DVT prophylaxis SCDs for now; probable surgery <Galen Ribeiro - Last Filed: 03/07/19 12:14> Objective - Vital Signs/Intake and Output Vital Signs (last 24 hours): Temp Pulse Resp BP Pulse Ox 98 F 72 17 129/69 100 03/07/19 11:30 03/07/19 11:30 03/07/19 11:30 03/07/19 11:30 03/07/19 11:30 Intake and Output: 03/07/19 03/07/19 06:59 18:59 Intake Total 0 Balance 0 - Medications Medications: Current Medications Dexamethasone (Decadron Inj) 4 mg IVP ONCE PRN PRN Reason: Nausea/Vomiting Stop: 03/07/19 13:33 Hydromorphone HCl (Dilaudid) 0.5 mg IVP Q3H PRN PRN Reason: Pain, severe (8-10) Last Admin: 03/07/19 05:43 Dose: 0.5 mg Hydromorphone HCl (Dilaudid) 0.5 mg IVP Q5M PRN PRN Reason: Pain, severe (8-10) Stop: 03/07/19 13:33 Piperacillin Sod/Tazobactam (Sod 3.375 gm/ Sodium Chloride) 100 mls @ 100 mls/hr IVPB Q6H [facility]; Protocol Last Admin: 03/07/19 04:15 Dose: 100 mls/hr Lactated Ringer's (Lactated Ringer's) 1,000 mls @ 125 mls/hr IV .Q8H [facility] Ibuprofen (Motrin Tab) 400 mg PO Q6 PRN PRN Reason: Pain, Mild (1-3) Metoclopramide HCl (Reglan) 10 mg IVP ONCE PRN PRN Reason: Nausea/Vomiting Stop: 03/07/19 13:33 Ondansetron HCl (Zofran Inj) 4 mg IVP Q4 PRN PRN Reason: Nausea/Vomiting Ondansetron HCl (Zofran Inj) 4 mg IVP ONCE PRN PRN Reason: Nausea/Vomiting Stop: 03/07/19 13:33 Oxycodone/Acetaminophen (Percocet 5/325 Mg Tab) 1 tab PO Q4 PRN PRN Reason: Pain, moderate (4-7) Stop: 03/10/19 11:50 Pantoprazole Sodium (Protonix Inj) 40 mg IVP DAILY [facility] Last Admin: 03/07/19 08:39 Dose: 40 mg Multivit/Folic Acid/Iron () 1 tab PO DAILY [facility] Last Admin: 03/07/19 08:42 Dose: Not Given - Labs Labs: 03/07/19 05:25 03/07/19 05:25 PT 13.0 Seconds (9.8-13.1) 03/07/19 05:25 INR 1.1 03/07/19 05:25 APTT 39.6 Seconds (25.6-37.1) H 03/07/19 05:25 Attending/Attestation - Attestation I have personally seen and examined this patient.: Yes I have fully participated in the care of the patient.: Yes I have reviewed all pertinent clinical information, including history, physical exam and plan: Yes Notes (Text): 03/07/19 12:13 Patient seen and examined with resident. Case discussed and agreed with ass essment.
[2019-03-07] MEDS: Piperacillin/Tazobact 3.375 GM in Sodium Chloride 0.9% 100 ML IVPB SCH ×4 (04:15→21:01)
[2019-03-07 06:16] LABS: MEAN CELL VOLUME 92.6 fl (81.0-99.0); MEAN CORPUSCULAR HEMOGLOBIN 31.1 pg (27.0-31.0); MEAN CORPUSCULAR HGB CONC 33.5 g/dL (33.0-37.0); RBC 3.53 Mil/uL (3.80-5.20); RED CELL DISTRIBUTION WIDTH 13.6 % (11.5-14.5); WHITE BLOOD COUNT 7.7 K/uL (4.8-10.8)
[2019-03-07 06:28] LABS: ALB/GLOB RATIO 1.2 (1.0-2.1); ALBUMIN 3.7 g/dL (3.5-5.0); ALT/SGPT 144 U/L (9-52); AST/SGOT 44 U/L (14-36); BLOOD UREA NITROGEN 6 mg/dl (7-17); CALCIUM 8.4 mg/dL (8.4-10.2); GFR NON-AFRICAN AMERICAN > 60
[2019-03-07 06:41] LABS: INR 1.1
[2019-03-07 06:44] LABS: PARTIAL THROMBOPLASTIN TIME 39.6 Seconds (25.6-37.1)
[2019-03-07] MEDS: Lactated Ringer's 1,000 ML IV SCH ×4 (07:18→20:13)
[2019-03-07] MEDS ORDERED: Rocuronium 10 mg/ml (5 ml) ONE (08:36)
[2019-03-07] MEDS ORDERED: Propofol 10 mg/ml Inj (20 ML) ONE (08:36)
[2019-03-07] MEDS ORDERED: Succinylcholine Chloride 20 mg/ml Syr (5 ml) IV ONE (08:36)
[2019-03-07] MEDS ORDERED: Lidocaine 4% (Laryng-O-Jet) Kit MM ONE (08:36)
[2019-03-07] MEDS: Prenatal Multivit/Folic Acid/Iron Tab PO SCH (08:42)
[2019-03-07] MEDS ORDERED: Bupivacaine HCl 0.5% PF (30 ml) Inj ONE (08:58)
[2019-03-07] MEDS ORDERED: Lidocaine 1% Inj (20ml) ONE (09:04)
[2019-03-07] MEDS ORDERED: Lactated Ringer's 1,000 ML IV ONE (09:35)
[2019-03-07] MEDS ORDERED: Midazolam 2 MG/2 ML VIAL ONE (09:39)
[2019-03-07] MEDS ORDERED: Lidocaine 1% Inj (20ml) INFIL ONE ×2 (10:00)
[2019-03-07] MEDS ORDERED: Bupivacaine 0.5% Inj(30mL) IJ ONE ×2 (10:00)
[2019-03-07] MEDS ORDERED: Dexamethasone 4 mg/1 ml ONE (10:01)
[2019-03-07] MEDS ORDERED: Sodium Chloride 0.9% 10 ML IV ONE (10:08)
[2019-03-07] MEDS ORDERED: ePHEDrine 50 mg/ml Inj ONE (10:08)
[2019-03-07] MEDS ORDERED: Neostigmine 1:1000 (1 mg/ml) Inj ONE (10:37)
[2019-03-07] MEDS ORDERED: HYDROmorphone 0.5 mg/0.5 ml ISec IVP PRN (11:32)
[2019-03-07] MEDS ORDERED: Dexamethasone 4 mg/1 ml IVP PRN (11:32)
--- NOTE | 2019-03-07 11:41 | PCM.SURG1 ---
Surgeon's Initial Post Op Note - Surgeon's Notes Surgeon: Dr. Galicia Traffic Chief: Hilary HOPE; Irina PGY2 Type of Anesthesia: General Endo, Local Anesthesia Administered By: Dr. Scott Pre-Operative Diagnosis: Symptomatic Cholelithiasis Operative Findings: See operative report Post-Operative Diagnosis: same Operation Performed: Laparascopic Cholecystectomy Specimen/Specimens Removed: Gallbladder Estimated Blood Loss: EBL {In ML}: 10 Blood Products Given: N/A Drains Used: No Drains Post-Op Condition: Good Date of Surgery/Procedure: 03/07/19 Time of Surgery/Procedure: 11:41
[2019-03-07] MEDS ORDERED: Oxycodone/Acetaminophen 5/325 mg Tab PO PRN (11:49)
--- NOTE | 2019-03-07 17:09 | CP.PCM.PN ---
<Sabas SharmaMo - Last Filed: 03/07/19 17:38> Subjective - Date & Time of Evaluation Date of Evaluation: 03/07/19 Time of Evaluation: 17:28 - Subjective Subjective: Patient seen and examined now, she is s/p lap cholecystectomy. Patient is still c/o abdominal pain and back pain 04/03, otherwise no other acute medical co mplaints at present, voided already and tolerated liquids. planning Dc tomorrow after pain well controlled. Patient informed of plan. Objective - Vital Signs/Intake and Output Vital Signs (last 24 hours): Temp Pulse Resp BP Pulse Ox 98.3 F 102 H 19 119/69 99 03/07/19 16:01 03/07/19 16:01 03/07/19 16:01 03/07/19 16:01 03/07/19 16:01 Intake and Output: 03/07/19 03/07/19 06:59 18:59 Intake Total 900 Balance 900 - Medications Medications: Current Medications Piperacillin Sod/Tazobactam (Sod 3.375 gm/ Sodium Chloride) 100 mls @ 100 mls/hr IVPB Q6H [facility]; Protocol Last Admin: 03/07/19 16:03 Dose: 100 mls/hr Lactated Ringer's (Lactated Ringer's) 1,000 mls @ 125 mls/hr IV .Q8H [facility] Last Admin: 03/07/19 12:40 Dose: 0 mls Ibuprofen (Motrin Tab) 400 mg PO Q6 PRN PRN Reason: Pain, Mild (1-3) Ondansetron HCl (Zofran Inj) 4 mg IVP Q4 PRN PRN Reason: Nausea/Vomiting Oxycodone/Acetaminophen (Percocet 5/325 Mg Tab) 1 tab PO Q4 PRN PRN Reason: Pain, moderate (4-7) Stop: 03/10/19 11:50 Pantoprazole Sodium (Protonix Inj) 40 mg IVP DAILY [facility] Last Admin: 03/07/19 08:39 Dose: 40 mg Multivit/Folic Acid/Iron () 1 tab PO DAILY [facility] Last Admin: 03/07/19 08:42 Dose: Not Given - Labs Labs: 03/07/19 05:25 03/07/19 05:25 PT 13.0 Seconds (9.8-13.1) 03/07/19 05:25 INR 1.1 03/07/19 05:25 APTT 39.6 Seconds (25.6-37.1) H 03/07/19 05:25 - Constitutional Appears: No Acute Distress - Head Exam Head Exam: NORMAL INSPECTION - Eye Exam Eye Exam: EOMI - ENT Exam ENT Exam: Mucous Membranes Moist - Respiratory Exam Respiratory Exam: Clear to Ausculation Bilateral - Cardiovascular Exam Cardiovascular Exam: RRR - GI/Abdominal Exam GI & Abdominal Exam: Soft, Tenderness Additional comments: appropriate tenderness after abdominal lap surgery done today POD0 - Neurological Exam Neurological Exam: Alert, Oriented x3 - Psychiatric Exam Psychiatric exam: Normal Affect - Skin Skin Exam: Normal Color Assessment and Plan - Assessment and Plan (Free Text) Assessment: 38 yo F no sig pmhx presents with RUQ pain. Admitted for cholelithiasis and dilated common bile duct. Patient seen now s/p Lap cholecystectomy, c/o pain on abdominal surgical region and back 04/03. D/c planning after pain is controlled. Plan: Cholelithiasis with dilation of CBD ERCP done 03/06: Removal of calculi/debris from biliary/pancreatic duct. Sphinterotomy/ papillotomy c/w CLD Planning for Lap Cholecystectomy done today Surgery consult: Dr. Romero GI consulted: Dr. Pagan On Admission: CXR: no active disease MRCP done on 03/03 showed: 1cm CBD stone as per GI, ERCP was recommended pain management UPREG neg IVABX: zosyn Transaminitis likely 2/2 cholelithiasis continue to trend labs DVT prophylaxis SCDs for now; probable surgery <Galen Ribeiro D - Last Filed: 03/07/19 18:41> Objective - Vital Signs/Intake and Output Vital Signs (last 24 hours): Temp Pulse Resp BP Pulse Ox 98.3 F 102 H 19 119/69 99 03/07/19 16:01 03/07/19 16:01 03/07/19 16:01 03/07/19 16:01 03/07/19 16:01 Intake and Output: 03/07/19 03/07/19 06:59 18:59 Intake Total 900 Balance 900 - Medications Medications: Current Medications Piperacillin Sod/Tazobactam (Sod 3.375 gm/ Sodium Chloride) 100 mls @ 100 mls/hr IVPB Q6H [facility]; Protocol Last Admin: 03/07/19 16:03 Dose: 100 mls/hr Lactated Ringer's (Lactated Ringer's) 1,000 mls @ 125 mls/hr IV .Q8H [facility] Last Admin: 03/07/19 12:40 Dose: 0 mls Ibuprofen (Motrin Tab) 400 mg PO Q6 PRN PRN Reason: Pain, Mild (1-3) Ondansetron HCl (Zofran Inj) 4 mg IVP Q4 PRN PRN Reason: Nausea/Vomiting Oxycodone/Acetaminophen (Percocet 5/325 Mg Tab) 1 tab PO Q4 PRN PRN Reason: Pain, moderate (4-7) Stop: 03/10/19 11:50 Pantoprazole Sodium (Protonix Inj) 40 mg IVP DAILY [facility] Last Admin: 03/07/19 08:39 Dose: 40 mg Multivit/Folic Acid/Iron () 1 tab PO DAILY [facility] Last Admin: 03/07/19 08:42 Dose: Not Given - Labs Labs: 03/07/19 05:25 03/07/19 05:25 PT 13.0 Seconds (9.8-13.1) 03/07/19 05:25 INR 1.1 03/07/19 05:25 APTT 39.6 Seconds (25.6-37.1) H 03/07/19 05:25 Attending/Attestation - Attestation I have personally seen and examined this patient.: Yes I have fully participated in the care of the patient.: Yes I have reviewed all pertinent clinical information, including history, physical exam and plan: Yes Notes (Text): 03/07/19 18:40 Patient seen and examined with resident. Case discussed and agreed with assessment and plan.
--- NOTE | 2019-03-08 02:52 | OP ---
PROCEDURE DATE: 03/07/2019 TIME OF SURGERY: 11:41 a.m. SURGEON: John Galicia MD ASSISTANTS: Griffin Richard DO, PGY-2; Мария Arevalo DO, PGY-2 TYPE OF ANESTHESIA: General endotracheal and local. ANESTHESIA ADMINISTERED BY: Mehul Knott MD PREOPERATIVE DIAGNOSIS: Symptomatic cholelithiasis. POSTOPERATIVE DIAGNOSIS: Symptomatic cholelithiasis. OPERATION PERFORMED: Laparoscopic cholecystectomy. SPECIMEN: Gallbladder. ESTIMATED BLOOD LOSS: 10 mL. BLOOD PRODUCTS: No intraoperative blood products were given. DRAINS: No drains were used. POSTOPERATIVE CONDITION: Good. INDICATIONS: The patient is a 38-year-old female with no significant past medical history who was admitted for right upper quadrant pain for eight days. The patient was noted to have choledocholithiasis and obtained an ERCP yesterday with a balloon sweep of the common bile duct by the GI team, Dr. Mendoza. Consent was obtained for the procedure and all the risks and benefits of the procedure were discussed with the patient preoperatively, and the patient was consented for a laparoscopic cholecystectomy, possible open cholecystectomy. DESCRIPTION OF PROCEDURE: The patient was placed in supine position in the operating room table. Anesthesia was induced by Dr. Knott and endotracheal tube was placed. The abdomen was prepped and draped in the usual sterile fashion using chlorhexidine. A #11 blade was used supraumbilically and a 1-cm incision was placed. A Veress needle was then advanced through the incision; however, upon increasing the pneumoperitoneum, it was noted that the abdominal pressures were too great and the Veress needle was not in the appropriate location. A second attempt was made through the umbilicus. Again noted to have no proper placement of the pneumoperitoneum. A third attempt was made and Marquez's point incision was used via the Veress needle and it was noted that pneumoperitoneum was obtained adequately. The incision in the supraumbilical region was then opened up using Irene clamp and a 10-mm trocar was inserted under direct vision using the Visiport. All the layers were then traversed and the trocar was placed intra-abdominally without any complaints. The entire abdominal cavity was then visualized and was free of any iatrogenic injuries. The patient was then placed in the position with the right side up and legs down. The subxiphoid incision was then made for a 5-mm trocar to be inserted under direct vision with no complaints. Then to right mid quadrant, 5-mm trocars were also obtained under direct vision without any immediate complications. The fundus of the gallbladder was then grasped with nontraumatic graspers and the gallbladder was retracted up above the liver bed and towards the right shoulder. This exposed the infundibulum. The infundibulum was then grasped with the second nontraumatic grasper. [place] grasper was then used to bluntly dissect the peritoneum off of the gallbladder infundibulum. This maneuver layered the cystic duct and the structures were easily visualized. Once the cystic duct was visualized, the blunt dissection was carried out until [place] graspers were able to be safely passed behind the cystic duct and through the other side, the [place]'s node was then identified and the artery close nearby posteriorly which was noted. Dissection bluntly was then carried forward with the [place] dissectors and again the cystic artery was noted and clearly identified. Once the critical view of safety was achieved, the cystic artery was clipped using 5-mm clips and the cystic duct was noted to be too inflamed. So, the subxiphoid port was up sized to a 10-mm port for use of a 10-mm Endoclip and then the 10-mm Endoclips were used to safely come across the cystic duct and this was divided using Endo Tarah as well as the cystic artery which was divided using Endo Tarah. The gallbladder was then retracted superiorly and the hook cautery was used to remove the gallbladder safely from the liver bed. There was entry and spillage into the abdominal cavity and which was immediately suctioned and irrigated and the entire gallbladder was then freed from the liver bed and good hemostasis was achieved. The gallbladder was then placed in an EndoCatch bag and removed from the umbilical port sites without any complications. This was sent off to the pathology by the surgical consultant. The entire abdominal cavity was again thoroughly inspected to ensure hemostasis at the liver bed. The abdomen was thoroughly irrigated with saline and suctioned until clear fluid returned and no bloody output noted. The entire abdominal cavity was again inspected and free of any iatrogenic injuries or concerning findings. The pneumoperitoneum was released and the periumbilical abdominal fascia was closed using three interrupted 0-Vicryl sutures and closed with good approximation. All the incisions were then closed using a 4-0 Monocryl in the running fashion and Dermabond was placed on the skin for closure. The instrument and sponge counts were declared correct by the operating room staff. The patient tolerated the procedure well without any immediate complications noted. The patient was placed back on the stretcher and moved to the postanesthesia care unit after being successfully extubated by the anesthesia team. The patient is in stable condition. Griffin Richard DO John Galicia MD
[2019-03-08] MEDS: Lactated Ringer's 1,000 ML IV SCH (04:12)
[2019-03-08] MEDS: Piperacillin/Tazobact 3.375 GM in Sodium Chloride 0.9% 100 ML IVPB SCH ×2 (04:12→10:14)
[2019-03-08 06:25] LABS: BASO % 0.2 % (0.0-2.0); EOS # 0.1 K/uL (0.0-0.7); EOS % 0.5 % (0.0-4.0); HEMOGLOBIN 10.7 g/dL (12.0-16.0); LYMPH # 1.7 K/uL (1.0-4.3); LYMPH % 17.1 % (20.0-40.0); MEAN CELL VOLUME 92.4 fl (81.0-99.0); MEAN CORPUSCULAR HEMOGLOBIN 31.7 pg (27.0-31.0); MEAN CORPUSCULAR HGB CONC 34.3 g/dL (33.0-37.0); MEAN PLATELET VOLUME 9.6 fl (7.2-11.7); MONO # 0.9 K/uL (0.0-0.8); MONO % 8.7 % (0.0-10.0); NEUT # 7.4 K/uL (1.8-7.0); NEUT % 73.5 % (50.0-75.0); RBC 3.38 Mil/uL (3.80-5.20); RED CELL DISTRIBUTION WIDTH 13.4 % (11.5-14.5); WHITE BLOOD COUNT 10.1 K/uL (4.8-10.8)
[2019-03-08 06:54] LABS: ALB/GLOB RATIO 1.2 (1.0-2.1); ALBUMIN 3.6 g/dL (3.5-5.0); ALT/SGPT 150 U/L (9-52); AST/SGOT 70 U/L (14-36); BLOOD UREA NITROGEN 10 mg/dl (7-17); CALCIUM 8.2 mg/dL (8.4-10.2); GFR NON-AFRICAN AMERICAN > 60
[2019-03-08 08:06] VITALS: BP 102/63; PULSE 78; RESP 18; TEMP 97.3
[2019-03-08] MEDS: Prenatal Multivit/Folic Acid/Iron Tab PO SCH (08:34)
[2019-03-08 10:43] VITALS: O2SAT 100
--- NOTE | 2019-03-08 10:52 | CP.PCM.PN ---
Subjective - Date & Time of Evaluation Date of Evaluation: 03/08/19 Time of Evaluation: 10:52 - Subjective Subjective: Surgery Progress note. Dr. Galicia Pt seen and examined at bedside. No acute events overnight. No N/V/D. Tolerating diet. No new complaints. No fevers or chills. Objective - Vital Signs/Intake and Output Vital Signs (last 24 hours): Temp Pulse Resp BP Pulse Ox 97.3 F L 78 18 102/63 100 03/08/19 08:05 03/08/19 08:05 03/08/19 08:05 03/08/19 08:05 03/08/19 10:46 - Medications Medications: Current Medications Piperacillin Sod/Tazobactam (Sod 3.375 gm/ Sodium Chloride) 100 mls @ 100 mls/hr IVPB Q6H [facility]; Protocol Last Admin: 03/08/19 10:14 Dose: 100 mls/hr Lactated Ringer's (Lactated Ringer's) 1,000 mls @ 125 mls/hr IV .Q8H [facility] Last Admin: 03/08/19 04:12 Dose: 125 mls/hr Ibuprofen (Motrin Tab) 400 mg PO Q6 PRN PRN Reason: Pain, Mild (1-3) Ondansetron HCl (Zofran Inj) 4 mg IVP Q4 PRN PRN Reason: Nausea/Vomiting Oxycodone/Acetaminophen (Percocet 5/325 Mg Tab) 1 tab PO Q4 PRN PRN Reason: Pain, moderate (4-7) Stop: 03/10/19 11:50 Last Admin: 03/07/19 23:17 Dose: 1 tab Pantoprazole Sodium (Protonix Inj) 40 mg IVP DAILY [facility] Last Admin: 03/08/19 08:35 Dose: 40 mg Multivit/Folic Acid/Iron () 1 tab PO DAILY [facility] Last Admin: 03/08/19 08:34 Dose: 1 tab - Labs Labs: 03/08/19 05:25 03/08/19 05:25 PT 13.0 Seconds (9.8-13.1) 03/07/19 05:25 INR 1.1 03/07/19 05:25 APTT 39.6 Seconds (25.6-37.1) H 03/07/19 05:25 - Constitutional Appears: Well, Non-toxic - Head Exam Head Exam: ATRAUMATIC - Eye Exam Eye Exam: Normal appearance - ENT Exam ENT Exam: Mucous Membranes Moist - Cardiovascular Exam Cardiovascular Exam: REGULAR RHYTHM, +S1, +S2 - GI/Abdominal Exam GI & Abdominal Exam: Normal Bowel Sounds Additional comments: Mild surjit-incisional tenderness. Incisions clean, dry and intact with dermabond. - Neurological Exam Neurological Exam: Alert, Awake - Psychiatric Exam Psychiatric exam: Normal Mood Assessment and Plan - Assessment and Plan (Free Text) Assessment: 47yo M with cholecystitis s/p Lap Natalie. POD 1 Plan: - Continue diet as tolerated -stable for discharge from surgery point of view -patient may shower, however advised patient not to take a bath - patient to follow up with Dr. Monk in 2 weeks. - Outpatient follow up for elevated liver enzymes Further recs as per Dr. Galicia
--- NOTE | 2019-03-08 11:02 | CP.PCM.DIS ---
<Sabas MineMo montalvo - Last Filed: 03/08/19 11:12> Provider - Provider Date of Admission: 03/03/19 20:00 Attending physician: Estevan Juarez Consults: 03/03/19 20:44 Gastroenterology Consult Routine Comment: Consulting Provider: Duarte Mendoza Consulting Physician: Duarte Mendoza Reason for Consult: cholelithiasis with dilation of common bile duct 03/03/19 20:47 General Surgery Consult Stat Comment: Consulting Provider: John Galicia Consulting Physician: John Galicia Reason for Consult: Choledocholithiasis Time Spent in preparation of Discharge (in minutes): 33 Diagnosis - Discharge Diagnosis (1) Cholecystitis Status: Acute (2) Choledocholithiasis Status: Acute Hospital Course - Lab Results Lab Results: Most Recent Lab Values WBC 10.1 K/uL (4.8-10.8) 03/08/19 05:25 RBC 3.38 Mil/uL (3.80-5.20) L 03/08/19 05:25 Hgb 10.7 g/dL (12.0-16.0) L 03/08/19 05:25 Hct 31.2 % (34.0-47.0) L 03/08/19 05:25 MCV 92.4 fl (81.0-99.0) 03/08/19 05:25 MCH 31.7 pg (27.0-31.0) H 03/08/19 05:25 MCHC 34.3 g/dL (33.0-37.0) 03/08/19 05:25 RDW 13.4 % (11.5-14.5) 03/08/19 05:25 Plt Count 203 K/uL (130-400) 03/08/19 05:25 MPV 9.6 fl (7.2-11.7) 03/08/19 05:25 Neut % (Auto) 73.5 % (50.0-75.0) 03/08/19 05:25 Lymph % (Auto) 17.1 % (20.0-40.0) L 03/08/19 05:25 Pope % (Auto) 8.7 % (0.0-10.0) 03/08/19 05:25 Eos % (Auto) 0.5 % (0.0-4.0) 03/08/19 05:25 Baso % (Auto) 0.2 % (0.0-2.0) 03/08/19 05:25 Neut # (Auto) 7.4 K/uL (1.8-7.0) H 03/08/19 05:25 Lymph # (Auto) 1.7 K/uL (1.0-4.3) 03/08/19 05:25 Pope # (Auto) 0.9 K/uL (0.0-0.8) H 03/08/19 05:25 Eos # (Auto) 0.1 K/uL (0.0-0.7) 03/08/19 05:25 Baso # (Auto) 0.0 K/uL (0.0-0.2) 03/08/19 05:25 Neutrophils % (Manual) 84 % (42-75) H 03/03/19 19:03 Band Neutrophils % 3 % (0-2) H 03/03/19 19:03 Lymphocytes % (Manual) 9 % (20-50) L 03/03/19 19:03 Monocytes % (Manual) 4 % (0-10) 03/03/19 19:03 Platelet Estimate Normal (NORMAL) 03/03/19 19:03 Hypochromasia (manual) Slight 03/03/19 19:03 Anisocytosis (manual) Slight 03/03/19 19:03 Tear Drop Cells Slight 03/03/19 19:03 PT 13.0 Seconds (9.8-13.1) 03/07/19 05:25 INR 1.1 03/07/19 05:25 APTT 39.6 Seconds (25.6-37.1) H 03/07/19 05:25 Sodium 136 mmol/l (132-148) 03/08/19 05:25 Potassium 3.3 MMOL/L (3.6-5.0) L 03/08/19 05:25 Chloride 103 mmol/L (98-107) 03/08/19 05:25 Carbon Dioxide 24 mmol/L (22-30) 03/08/19 05:25 Anion Gap 12 (10-20) 03/08/19 05:25 BUN 10 mg/dl (7-17) 03/08/19 05:25 Creatinine 0.6 mg/dl (0.7-1.2) L 03/08/19 05:25 Est GFR ( Amer) > 60 03/08/19 05:25 Est GFR (Non-Af Amer) > 60 03/08/19 05:25 Random Glucose 108 mg/dL (65-105) H 03/08/19 05:25 Calcium 8.2 mg/dL (8.4-10.2) L 03/08/19 05:25 Total Bilirubin 0.6 mg/dl (0.2-1.3) 03/08/19 05:25 AST 70 U/L (14-36) H D 03/08/19 05:25 ALT 150 U/L (9-52) H 03/08/19 05:25 Alkaline Phosphatase 131 U/L (38-126) H 03/08/19 05:25 Total Protein 6.6 G/DL (6.3-8.2) 03/08/19 05:25 Albumin 3.6 g/dL (3.5-5.0) 03/08/19 05:25 Globulin 3.0 gm/dL (2.2-3.9) 03/08/19 05:25 Albumin/Globulin Ratio 1.2 (1.0-2.1) 03/08/19 05:25 Amylase 118 U/L (30-110) H 03/03/19 19:03 Lipase 291 U/L (23-300) 03/03/19 19:03 Blood Type O POSITIVE 03/06/19 06:05 Antibody Screen Negative 03/06/19 06:05 BBK History Checked Patient has bt 03/06/19 06:05 - Hospital Course Hospital Course: 38 yo F with no sig pmhx presented with RUQ pain x 8 days, intermittent, slowly progressing to 10/10. Associated with nausea and NBNB vomiting x3 today. Denied hx of similar symptoms before. Patient had RUQ US showed colelythiasis, MRCP done on 03/03 showed: 1cm CBD stone and she was evaluated by GI, ERCP was recommended. ERCP was done on 03/06 with Removal of calculi/debris from bili joe/pancreatic duct. Patient was evaluated by sureluisa and underwent lap cholecystectomy yesterday 03/07, patint today is doing well, post op pain is under controlled, tolerates regular diet, no N/V. Chart and clinical data reviewed, patient found stable for DC. Patient instructions for f/u given. Patient verbalizes understading. Discharge Exam - Head Exam Head Exam: ATRAUMATIC - Eye Exam Eye Exam: EOMI - ENT Exam ENT Exam: Mucous Membranes Moist - Respiratory Exam Respiratory Exam: Clear to PA & Lateral, NORMAL BREATHING PATTERN - Cardiovascular Exam Cardiovascular Exam: REGULAR RHYTHM - GI/Abdominal Exam GI & Abdominal Exam: Soft. absent: Tenderness - Neurological Exam Neurological exam: Alert, Oriented x3 - Skin Skin Exam: Normal Color, Warm Discharge Plan - Follow Up Plan Condition: FAIR Disposition: HOME/ ROUTINE Instructions: Cholecystectomy, Laparoscopic Surgery, Laceration Repair With Glue (DC), Gallstones (DC) Additional Instructions: hacer shailesh con mcclendon primario dentro de 1 semana Follow up with your PMD in 2 to 3 days Follow up with your surgeon in 1 to 2 weeks Continue taking your medication as prescribed. ED Precautions given: Go to the ED if you have abdominal pain, nausea, vomiting, fever or any other symptom of concern presents Referrals: Duarte Mendoza MD [Staff Provider] - John Galicia MD [Staff Provider] - <Galen Ribeiro - Last Filed: 03/08/19 11:27> Provider - Provider Date of Admission: 03/03/19 20:00 Attending physician: Estevan Juarez Consults: 03/03/19 20:44 Gastroenterology Consult Routine Comment: Consulting Provider: Duarte Mendoza Consulting Physician: Duarte Mendoza Reason for Consult: cholelithiasis with dilation of common bile duct 03/03/19 20:47 General Surgery Consult Stat Comment: Consulting Provider: John Galicia Consulting Physician: John Galicia Reason for Consult: Choledocholithiasis Hospital Course - Lab Results Lab Results: Most Recent Lab Values WBC 10.1 K/uL (4.8-10.8) 03/08/19 05:25 RBC 3.38 Mil/uL (3.80-5.20) L 03/08/19 05:25 Hgb 10.7 g/dL (12.0-16.0) L 03/08/19 05:25 Hct 31.2 % (34.0-47.0) L 03/08/19 05:25 MCV 92.4 fl (81.0-99.0) 03/08/19 05:25 MCH 31.7 pg (27.0-31.0) H 03/08/19 05:25 MCHC 34.3 g/dL (33.0-37.0) 03/08/19 05:25 RDW 13.4 % (11.5-14.5) 03/08/19 05:25 Plt Count 203 K/uL (130-400) 03/08/19 05:25 MPV 9.6 fl (7.2-11.7) 03/08/19 05:25 Neut % (Auto) 73.5 % (50.0-75.0) 03/08/19 05:25 Lymph % (Auto) 17.1 % (20.0-40.0) L 03/08/19 05:25 Pope % (Auto) 8.7 % (0.0-10.0) 03/08/19 05:25 Eos % (Auto) 0.5 % (0.0-4.0) 03/08/19 05:25 Baso % (Auto) 0.2 % (0.0-2.0) 03/08/19 05:25 Neut # (Auto) 7.4 K/uL (1.8-7.0) H 03/08/19 05:25 Lymph # (Auto) 1.7 K/uL (1.0-4.3) 03/08/19 05:25 Pope # (Auto) 0.9 K/uL (0.0-0.8) H 03/08/19 05:25 Eos # (Auto) 0.1 K/uL (0.0-0.7) 03/08/19 05:25 Baso # (Auto) 0.0 K/uL (0.0-0.2) 03/08/19 05:25 Neutrophils % (Manual) 84 % (42-75) H 03/03/19 19:03 Band Neutrophils % 3 % (0-2) H 03/03/19 19:03 Lymphocytes % (Manual) 9 % (20-50) L 03/03/19 19:03 Monocytes % (Manual) 4 % (0-10) 03/03/19 19:03 Platelet Estimate Normal (NORMAL) 03/03/19 19:03 Hypochromasia (manual) Slight 03/03/19 19:03 Anisocytosis (manual) Slight 03/03/19 19:03 Tear Drop Cells Slight 03/03/19 19:03 PT 13.0 Seconds (9.8-13.1) 03/07/19 05:25 INR 1.1 03/07/19 05:25 APTT 39.6 Seconds (25.6-37.1) H 03/07/19 05:25 Sodium 136 mmol/l (132-148) 03/08/19 05:25 Potassium 3.3 MMOL/L (3.6-5.0) L 03/08/19 05:25 Chloride 103 mmol/L (98-107) 03/08/19 05:25 Carbon Dioxide 24 mmol/L (22-30) 03/08/19 05:25 Anion Gap 12 (10-20) 03/08/19 05:25 BUN 10 mg/dl (7-17) 03/08/19 05:25 Creatinine 0.6 mg/dl (0.7-1.2) L 03/08/19 05:25 Est GFR ( Amer) > 60 03/08/19 05:25 Est GFR (Non-Af Amer) > 60 03/08/19 05:25 Random Glucose 108 mg/dL (65-105) H 03/08/19 05:25 Calcium 8.2 mg/dL (8.4-10.2) L 03/08/19 05:25 Total Bilirubin 0.6 mg/dl (0.2-1.3) 03/08/19 05:25 AST 70 U/L (14-36) H D 03/08/19 05:25 ALT 150 U/L (9-52) H 03/08/19 05:25 Alkaline Phosphatase 131 U/L (38-126) H 03/08/19 05:25 Total Protein 6.6 G/DL (6.3-8.2) 03/08/19 05:25 Albumin 3.6 g/dL (3.5-5.0) 03/08/19 05:25 Globulin 3.0 gm/dL (2.2-3.9) 03/08/19 05:25 Albumin/Globulin Ratio 1.2 (1.0-2.1) 03/08/19 05:25 Amylase 118 U/L (30-110) H 03/03/19 19:03 Lipase 291 U/L (23-300) 03/03/19 19:03 Blood Type O POSITIVE 03/06/19 06:05 Antibody Screen Negative 03/06/19 06:05 BBK History Checked Patient has bt 03/06/19 06:05 Attending/Attestation - Attestation I have personally seen and examined this patient.: Yes I have fully participated in the care of the patient.: Yes I have reviewed all pertinent clinical information, including history, physical exam and plan: Yes Notes (Text): 03/08/19 11:27 Patient seen and examined with resident. Case discussed and agreed with assessment. Patient discharged in stable condition
== END 2019-03-08 14:34 | disposition home or self-care (01) | DRG 263 ==
LOC: H.ER 17:32 → H.ERHOLD 20:00 → OBSVTOIN 20:00 → H.ERHOLD 20:42 → UNDOADMOB 20:42 → H.MEDSURG1 22:20
PROVIDERS: ADMIT Internal Medicine; ATTEND Internal Medicine
PROC: 0FC98ZZ Extirpation of Matter from Common Bile Duct, Via Natural or Artificial Opening Endoscopic (ICD-10-PCS; 2019-03-06)
PROC: 0FT44ZZ Resection of Gallbladder, Percutaneous Endoscopic Approach (ICD-10-PCS; principal; 2019-03-07 09:00)
DX: K80.21 Calculus of gallbladder without cholecystitis with obstruction (principal); K29.50 Unspecified chronic gastritis without bleeding; R79.89 Other specified abnormal findings of blood chemistry